=== PATIENT | female | born 1975 | race Asian ===

== ENCOUNTER 2018-07-13 13:04 | Observation (INO) | payer OTHER ==
--- OUTSIDE RECORDS SUMMARY | 2018-07-13 13:07 | XMS REPORT ---
:1975 Author Organization eClinicalWorks Care Team Providers Name Role Phone Joshua Bailey Provider Role Unavailable Allergies, Adverse Reactions, Alerts Substance Reaction Event Type N.K.D.A. Info Not Available Non Drug Allergy Problems Problem Type Condition Code Onset Dates Condition Status Assessment Well woman exam with routine Z01.419 Active gynecological exam Assessment Infertility counseling Z31.69 Active Problem Infertility counseling Z31.69 Active Problem Infertility associated with N97.0 Active anovulation Problem Well woman exam with routine Z01.419 Active gynecological exam Assessment Encounter for annual routine Z01.419 Active gynecological examination Problem Encounter for annual routine Z01.419 Active gynecological examination Problem Abnormal mammogram of both breasts R92.8 Active Medications Medication Code System Code Instructions Start End Date Status Dosage Date Vitamin C [facility] 55412290409 1000 MG Orally Active 1 tablet Once a day Vitamin D-[address] [facility] 70809657799 1000 UNIT Orally Active 1 capsule Once a day Results Name Result Date Reference Range Unit Abnormality Flag URINALYSIS AUTO W/O SCOPE (04011) ----NIT neg [id number] ----URO 0.2 [id number] ----PROTEIN neg [id number] ----pH 6.0 [id number] ----BLO 3+ [id number] ----GLUCOSE neg [id number] ----BAILEE neg [id number] ----BILIRUBIN neg [id number] ----KETONES neg [id number] ----SPECIFIC GRAVITY 1.010 [id number] Summary Purpose eClinicalWorks Submission
--- OUTSIDE RECORDS SUMMARY | 2018-07-13 13:28 | XMS REPORT ---
[...] End Date Status Dosage Date Vitamin C [facility] 35800378435 1000 MG Orally Active 1 tablet Once a day Vitamin D-[address] [facility] 90743668435 1000 UNIT Orally Active 1 capsule Once a day Results Name Result Date Reference Range Unit Abnormality Flag URINALYSIS AUTO W/O SCOPE (50317) ----NIT neg [id number] ----URO 0.2 [id number] ----PROTEIN neg [id number] ----pH 6.0 [id number] ----BLO 3+ [id number] ----GLUCOSE neg [id number] ----BAILEE neg [id number] ----BILIRUBIN neg [id number] ----KETONES neg [id number] ----SPECIFIC GRAVITY 1.010 [id number] Summary Purpose eClinicalWorks Submission
[2018-07-13] MEDS ORDERED: ALBUTEROL 2.5 MG/3 ML NEB SOL IH PRN (15:06)
[2018-07-13 15:56] LABS: BUN Blood Urea Nitrogen 6 mg/dL (7-18); Bicarbonate 24 mmol/L (21-32); Glucose Level 120 mg/dL (74-106); Potassium 3.6 mmol/L (3.5-5.1); Sodium Level 141 mmol/L (136-145)
[2018-07-13] MEDS ORDERED: ONDANSETRON 4 MG (ODT) TAB PO PRN (16:00)
[2018-07-13] MEDS ORDERED: ONDANSETRON 4 MG/2 ML VIAL IV PRN (16:00)
[2018-07-13] MEDS ORDERED: POLYETHYL GLY 3350 17 GM/DOSE PO PRN (16:00)
[2018-07-13] MEDS ORDERED: INFLUENZA VACCINE (for 3y+) 0.5 ML DOSE IMVAC ONE (16:00)
[2018-07-13] MEDS ORDERED: ACETAMINOPHEN 325 MG TABLET PO PRN (16:00)
[2018-07-13] MEDS ORDERED: LOPERAMIDE HCL 2 MG CAPSULE PO PRN (16:00)
[2018-07-13] MEDS ORDERED: NACHLORIDE 0.45% 1,000 ML IV SCH (16:00)
[2018-07-13] MEDS ORDERED: DIPHENHYDRAMINE 25 MG TAB/CAP PO PRN (16:00)
[2018-07-13] MEDS ORDERED: PNEUMOCOCCAL VACCINE 0.5 ML IMVAC ONE (16:00)
[2018-07-13 16:03] LABS: Absolute Lymphocytes (CBC) 1.8 K/uL (0.7-4.9); Absolute Monocytes 0.5 K/uL (0.1-1.3); Absolute Neutrophil 3.5 K/uL (1.8-8.0); Basophils % 0.9 % (0-1.3); Eosinophils % 2.9 % (0-4.4); Hematocrit 25.2 % (36.0-45.0); Lymphocytes % 29.6 % (15.3-44.8); MPV 8.4 fL (7.6-11.3); Monocytes % 8.3 % (3.3-12.3); RBC Red Blood Cell Count 3.53 M/uL (3.86-4.86)
[2018-07-13] MEDS ORDERED: NA CHLORIDE 0.9% 250 ML ONE (16:52)
[2018-07-13 17:52] LABS: Platelet Estimate INCR; Urine White Blood Cell Casts OK
[2018-07-13 17:53] LABS: Anisocytosis 3+; Blood Morphology Comment NOTED (NOT SEEN); Hypochromasia 1+; Polychromasia SLIGHT
[2018-07-13] MEDS: ALBUTEROL 2.5 MG/3 ML NEB SOL IH SCH (20:00)
[2018-07-13] MEDS: IPRATROPIUM BROM 0.5MG/2.5ML IH SCH (20:00)
[2018-07-14] MEDS: IPRATROPIUM BROM 0.5MG/2.5ML IH SCH ×2 (01:59→08:00)
[2018-07-14] MEDS: ALBUTEROL 2.5 MG/3 ML NEB SOL IH SCH ×2 (01:59→08:00)
[2018-07-14 05:05] LABS: Hematocrit 31.9 % (36.0-45.0)
--- NOTE | 2018-07-14 18:02 | P.DS ---
Admission Date: 07/13/18 Discharge Date: 07/14/18 Disposition: ROUTINE DISCHARGE Discharge Condition: FAIR Brief History of Present Illness: JOSELIN HAS SEVER MENORRHAGEA. HER HG IS DOWN TO 7.7 GM. SHE IS VERY SYMPTOMATIC FROM IT. SHE IS GIVEN TWO UNITS OF BLOOD AND WILL FU WITH DR. DOAN. Vital Signs/Physical Exam: Temp Pulse Resp BP Pulse Ox 98.2 F 90 16 152/90 H 99 07/14/18 08:00 07/14/18 08:00 07/14/18 08:00 07/14/18 08:00 07/14/18 08:00 Laboratory Data at Discharge: WBC 6.0 K/uL (4.3-10.9) 07/13/18 15:25 Hgb 10.2 g/dL (12.0-15.0) L 07/14/18 04:33 Hct 31.9 % (36.0-45.0) L D 07/14/18 04:33 Plt Count 426 K/uL (152-406) H 07/13/18 15:25 Sodium 141 mmol/L (136-145) 07/13/18 15:25 Potassium 3.6 mmol/L (3.5-5.1) 07/13/18 15:25 BUN 6 mg/dL (7-18) L 07/13/18 15:25 Creatinine 0.57 mg/dL (0.55-1.3) 07/13/18 15:25 Glucose 120 mg/dL (74-106) H 07/13/18 15:25 Home Medications: Ascorbic Acid [Vitamin C] 1,000 mg PO DAILY 07/13/18 Cholecalciferol (Vitamin D3) [Vitamin D3] 5,000 unit PO DAILY 07/13/18 Ferrous Sulfate [Feosol] 325 mg PO BID 07/13/18 Norgestimate-Ethinyl Estradiol [Sprintec 28 Day Tablet] 1 each PO DAILY Patient Discharge Instructions: CONTINUE IRON TABLET DAILY. COME TO OFFICE IN TWO WEEKS. Followup: Dain Sultana MD [Primary Care Provider] - 1-2 Weeks
== END 2018-07-14 09:10 | disposition home or self-care (01) ==
LOC: ERHOLD 13:04 → UNDOADMOB 13:04 → 2ND 13:23
PROVIDERS: ADMIT Internal Medicine; ATTEND Internal Medicine
PROC: 30233N1 Transfusion of Nonautologous Red Blood Cells into Peripheral Vein, Percutaneous Approach (ICD-10-PCS; principal; 2018-07-13)
DX: D64.9 Anemia, unspecified (principal); N92.0 Excessive and frequent menstruation with regular cycle
CPT/HCPCS: 36415; 36430; 80048; 85014; 85018; 85025; 86850; 86900; 86901; 90670; G0378; P9016

== ENCOUNTER 2019-09-05 21:34 | Emergency (ER) | payer OTHER ==
--- OUTSIDE RECORDS SUMMARY | 2019-09-05 21:36 | XMS REPORT ---
:1975 Author Organization [facility] Address [address] [place] [address] [place] [id number] Care Team Providers Name Role Phone Unavailable Unavailable Unavailable Problems This patient has no known problems. Allergies, Adverse Reactions, Alerts This patient has no known allergies or adverse reactions. Medications This patient has no known medications.
--- OUTSIDE RECORDS SUMMARY | 2019-09-05 21:36 | XMS REPORT ---
:1975 Author Organization eClinicalWorks Care Team Providers Name Role Phone Joshua Bailey Provider Role Unavailable Allergies, Adverse Reactions, Alerts Substance Reaction Event Type N.K.D.A. Info Not Available Non Drug Allergy Problems Problem Type Condition Code Onset Dates Condition Status Problem Anemia due to acute blood loss D62 Active Problem Menorrhagia with regular cycle N92.0 Active Problem Menorrhagia with irregular cycle N92.1 Active Problem Encounter for screening mammogram Z12.31 Active for breast cancer Assessment BMI 25.0-25.9,adult Z68.25 Active Problem Encounter for gynecological Z01.419 Active examination without abnormal finding Assessment Hypertension, unspecified type I10 Active Problem BMI 25.0-25.9,adult Z68.25 Active Problem Lower abdominal pain R10.30 Active Problem Irregular bleeding N92.6 Active Problem Hypertension, unspecified type I10 Active Problem Uterine leiomyoma, unspecified D25.9 Active location Problem Abnormal mammogram of both breasts R92.8 Active Assessment Encounter for screening mammogram Z12.31 Active for breast cancer Assessment Encounter for gynecological Z01.419 Active examination without abnormal finding Problem Well woman exam with routine Z01.419 Active gynecological exam Problem Encounter for annual routine Z01.419 Active gynecological examination Problem Infertility associated with N97.0 Active anovulation Problem Abnormal uterine bleeding unrelated N93.9 Active to menstrual cycle Problem Infertility counseling Z31.69 Active Problem Encounter for Depo-Provera Z30.42 Active contraception Medications Medication Code System Code Instructions Start End Date Status Dosage Date Vitamin C [facility] 24122443336 1000 MG Orally Active 1 tablet Once a day Vitamin D-3 [facility] 93233048796 5000 UNIT Orally Active 1 tablet Once a day Sprintec 28 [facility] 49126925353 0.25-35 MG-MCG Jul 08, Active 1 tablet Orally Once a day 2018 Results No Known Results Summary Purpose eClinicalWorks Submission
[2019-09-05] MEDS ORDERED: ACETAMINOPHEN 500 MG TAB ONE (22:14)
[2019-09-05] MEDS ORDERED: NA CHLORIDE 0.9% 1,000 ML ONE (22:14)
[2019-09-05 22:54] LABS: Absolute Lymphocytes (CBC) 1.3 K/uL (0.7-4.9); Basophils % 0.6 % (0-1.3); Hematocrit 39.9 % (36.0-45.0); Lymphocytes % 26.8 % (15.3-44.8); MPV 9.3 fL (7.6-11.3)
[2019-09-05 23:02] LABS: BUN Blood Urea Nitrogen 6 mg/dL (7-18); Bicarbonate 26 mmol/L (21-32); Glucose Level 168 mg/dL (74-106); Potassium 3.7 mmol/L (3.5-5.1); Sodium Level 138 mmol/L (136-145)
--- NOTE | 2019-09-06 00:03 | ER ---
Nurse's Notes [facility] Name: Lissy Angel Age: 43 yrs Sex: Female : 1975 Arrival Date: 09/05/2019 Time: 21:36 Bed 6 Private MD: Diagnosis: Acute upper respiratory infection, unspecified Presentation: 09/04 21:42 Chief complaint: Patient states: that she is having chills, sore throat, cough, fc fatigue, body aches and headache that started today. Coronavirus screen: Patient denies fever greater than 100.4F, cough, shortness of breath, or difficulty breathing. Coronavirus screen: Coronavirus screen: Patient reports a subjective fever or greater than 100.4F, or cough, or shortness of breath, or difficulty breathing. Surgical mask placed on patient. Patient moved to private room, placed in contact and droplet isolation with eye protection until further assessment. Patient reports contact with known and/or suspected case of COVID-19. Ebola Screen: Patient negative for fever greater than or equal to 101.5 degrees Fahrenheit, and additional compatible Ebola Virus Disease symptoms Patient denies exposure to infectious person. Patient denies travel to an Ebola-affected area in the 21 days before illness onset. Initial Sepsis Screen: Does the patient meet any 2 criteria? RR > 20 per min. HR > 90 bpm. Yes Does the patient have a suspected source of infection? No. Patient's initial sepsis screen is negative. Risk Assessment: Do you want to hurt yourself or someone else? Patient reports no desire to harm self or others. Onset of symptoms was September 05, 2019. Care prior to arrival: Medication(s) given: Tylenol, this am. Transition of care: patient was not received from another setting of care. 21:42 Method Of Arrival: Ambulatory fc 21:42 Acuity: [place] 3 fc Triage Assessment: 22:35 Headache History: Denies prior headaches. General: Appears uncomfortable, Behavior is ea appropriate for age. Pain: Complains of pain in sore throat and headache. 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 - Social history:: Smoking status: Patient denies any tobacco usage or history of. Patient/guardian denies using alcohol, street drugs. Screenin:34 Abuse screen: Denies threats or abuse. Nutritional screening: No deficits noted. ea Tuberculosis screening: No symptoms or risk factors identified. Fall Risk None identified. Assessment: 22:34 General: Appears uncomfortable, Behavior is calm, cooperative, appropriate for age. ea Pain: Denies pain. Neuro: Level of Consciousness is awake, alert, obeys commands, Oriented to person, place, time, situation. Cardiovascular: Patient's skin is warm and dry. Respiratory: Airway is patent Respiratory effort is even, unlabored, Respiratory pattern is regular, symmetrical. Derm: Skin is pink, warm \T\ dry. 23:04 Reassessment: Patient and/or family updated on plan of care and expected duration. Pain ea level reassessed. Patient is alert, oriented x 3, equal unlabored respirations, skin warm/dry/pink. 23:44 Reassessment: Patient and/or family updated on plan of care and expected duration. Pain ea level reassessed. Patient is alert, oriented x 3, equal unlabored respirations, skin warm/dry/pink. Pt taken to radiology. 09/05 00:02 Reassessment: Patient and/or family updated on plan of care and expected duration. Pain ea level reassessed. Patient is alert, oriented x 3, equal unlabored respirations, skin warm/dry/pink. Pt returned from radiology. 00:13 Reassessment: Patient and/or family updated on plan of care and expected duration. Pain ea level reassessed. Patient is alert, oriented x 3, equal unlabored respirations, skin warm/dry/pink. Discharge instruction given to patient, verbalized the understanding of instruction. Pt left ED ambulatory, with mask in place, tolerating well. 09:39 Reassessment: Received PUI# [id number], [facility] called to roland Frazier in lab . Vital Signs: 09/04 21:42 BP 186 / 106; Pulse 124; Resp 22; Temp 99.5(O); Pulse Ox 100% on R/A; Weight 58.97 kg fc (R); Height 5 ft. 0 in. (152.40 cm) (R); Pain 4/10; 09/05 00:01 BP 151 / 94; Pulse 98; Resp 19; Pulse Ox 100% on R/A; ea 00:12 Temp 98.5; ea 09/04 21:42 Body Mass Index 25.39 (58.97 kg, 152.40 cm) ED Course: 09/04 21:36 Patient arrived in ED. cl3 21:47 Triage completed. fc 21:47 [facility] Gustaf[facility]-C [facility]. kb 21:47 Jaden Disla MD is Attending Physician. kb 21:48 Arm band placed on Patient placed in an exam room, on a stretcher. fc 22:08 Rachel Castro, KAYLEE is Primary Nurse. ea 22:34 Patient has correct armband on for positive identification. Bed in low position. Call ea light in reach. Side rails up X 1. 22:34 Inserted saline lock: 20 gauge in left antecubital area, using aseptic technique. Blood ea collected. 22:35 EKG done, by ED staff. mt 09/05 00:13 No provider procedures requiring assistance completed. IV discontinued, intact, ea bleeding controlled, No redness/swelling at site. Pressure dressing applied. 00:15 Chest Pa And Lat (2 Views) XRAY In Process Unspecified. EDMS Administered Medications: 09/04 22:33 Drug: Tylenol 1000 mg Route: PO; ea 09/05 00:15 Follow up: Response: No adverse reaction ea 09/04 22:33 Drug: NS 0.9% 1000 ml Route: IV; Rate: 1000 ml; Site: left antecubital; ea 09/05 00:10 Follow up: Response: No adverse reaction; IV Status: Completed infusion; IV Intake: ea 1000ml Intake: 00:10 IV: 1000ml; Total: 1000ml. ea Outcome: 00:02 Discharge ordered by . kb 00:13 Discharged to home ambulatory. ea 00:13 Condition: stable 00:13 Discharge instructions given to patient, Instructed on discharge instructions, follow up and referral plans. Demonstrated understanding of instructions, follow-up care. 00:21 Patient left the ED. ea Signatures: Dispatcher [employer] EDLesli Combs, LACTATION NURSE-C LACTATION NURSE-CkAngelika Welch RN Milvia Vasquez RN RN iw Thompson, Moriah mt Antunez, Elena, RN RN ea Lewis, Charde cl3 Corrections: (The following items were deleted from the chart) 00:14 00:13 Reassessment: Patient and/or family updated on plan of care and expected ea duration. Pain level reassessed. Patient is alert, oriented x 3, equal unlabored respirations, skin warm/dry/pink. Discharge instruction given to patient, verbalized the understanding of instruction. Pt left ED ambulatory, tolerating well. ea
--- NOTE | 2019-09-06 00:04 | EDPHYS ---
Physician Documentation [facility] Name: Lissy Angel Age: 43 yrs Sex: Female : 1975 Arrival Date: 09/05/2019 Time: 21:36 Bed 6 Private MD: ED Physician Jaden Disla HPI: 09/04 22:12 This 43 yrs old Female presents to ER via Ambulatory with complaints of Headache, kb Sore Throat. 22:12 The patient or guardian reports cough, that is intermittent, described as mild, with no kb sputum, flu symptoms, low-grade fever, myalgias. Onset: The symptoms/episode began/occurred this morning. Severity of symptoms: At their worst the symptoms were moderate, in the emergency department the symptoms are unchanged. Modifying factors: The symptoms are alleviated by nothing, the symptoms are aggravated by nothing. Associated signs and symptoms: Pertinent positives: fever, sore throat, Pertinent negatives: chest pain, diarrhea, ear ache, nausea, rhinorrhea, vomiting. The patient has not experienced similar symptoms in the past. The patient has not recently seen a physician. Pt reports fever, cough, sore throat, body aches, headache since this morning. States she picked up someone from the airport that traveled from [facility] on 08/26/19. That person is not sick, but the other person that lives with her and was near the traveler has had fever and headache since 08/27/19. Also reports she took care of a patient that was a PUI and has a test pending for COVID. 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 - Social history:: Smoking status: Patient denies any tobacco usage or history of. Patient/guardian denies using alcohol, street drugs. ROS: 22:12 Neck: Negative for injury, pain, and swelling, Cardiovascular: Negative for chest pain, kb palpitations, and edema, Abdomen/GI: Negative for abdominal pain, nausea, vomiting, diarrhea, and constipation, Back: Negative for injury and pain, MS/Extremity: Negative for injury and deformity, Skin: Negative for injury, rash, and discoloration. 22:12 Constitutional: Positive for body aches, fatigue, fever, malaise. 22:12 ENT: Positive for sore throat. 22:12 Respiratory: Positive for cough, Negative for dyspnea on exertion, hemoptysis, orthopnea, pleurisy, shortness of breath, sputum production, wheezing. 22:12 Neuro: Positive for headache, Negative for altered mental status, dizziness, gait disturbance, hearing loss, loss of consciousness, numbness, seizure activity, speech changes, syncope, near syncope, tingling, tinnitus, tremor, visual changes, weakness. Exam: 22:12 Constitutional: This is a well developed, well nourished patient who is awake, alert, kb and in no acute distress. Head/Face: Normocephalic, atraumatic. ENT: Nares patent. No nasal discharge, no septal abnormalities noted. Tympanic membranes are normal and external auditory canals are clear. Oropharynx with no redness, swelling, or masses, exudates, or evidence of obstruction, uvula midline. Mucous membranes moist. Neck: Trachea midline, no thyromegaly or masses palpated, and no cervical lymphadenopathy. Supple, full range of motion without nuchal rigidity, or vertebral point tenderness. No Meningismus. Chest/axilla: Normal chest wall appearance and motion. Nontender with no deformity. No lesions are appreciated. Respiratory: Lungs have equal breath sounds bilaterally, clear to auscultation and percussion. No rales, rhonchi or wheezes noted. No increased work of breathing, no retractions or nasal flaring. Abdomen/GI: Soft, non-tender, with normal bowel sounds. No distension or tympany. No guarding or rebound. No evidence of tenderness throughout. Back: No spinal tenderness. No costovertebral tenderness. Full range of motion. Skin: Warm, dry with normal turgor. Normal color with no rashes, no lesions, and no evidence of cellulitis. MS/ Extremity: Pulses equal, no cyanosis. Neurovascular intact. Full, normal range of motion. Neuro: Awake and alert, GCS 15, oriented to person, place, time, and situation. Cranial nerves II-XII grossly intact. Motor strength 5/5 in all extremities. Sensory grossly intact. Cerebellar exam normal. Normal gait. 22:12 Cardiovascular: Rate: tachycardic, Rhythm: regular, Pulses: no pulse deficits are appreciated, Heart sounds: normal, normal S1and S2. Vital Signs: 21:42 BP 186 / 106; Pulse 124; Resp 22; Temp 99.5(O); Pulse Ox 100% on R/A; Weight 58.97 kg fc (R); Height 5 ft. 0 in. (152.40 cm) (R); Pain 4/10; 09/05 00:01 BP 151 / 94; Pulse 98; Resp 19; Pulse Ox 100% on R/A; ea 00:12 Temp 98.5; ea 09/04 21:42 Body Mass Index 25.39 (58.97 kg, 152.40 cm) fc MDM: 09/04 21:47 Patient medically screened. kb 22:12 Data reviewed: vital signs, nurses notes. Data interpreted: Pulse oximetry: on room air kb is 100 %. Interpretation: normal. 09/05 00:00 Counseling: I had a detailed discussion with the patient and/or guardian regarding: the kb historical points, exam findings, and any diagnostic results supporting the discharge/admit diagnosis, lab results, radiology results, the need for outpatient follow up, a family practitioner, to return to the emergency department if symptoms worsen or persist or if there are any questions or concerns that arise at home. 09/04 22:37 Order name: Influenza Screen (A ; Complete Time: 22:54 EDDC 09/04 21:49 Order name: Chest Pa And Lat (2 Views) XRAY kb 09/04 22:37 Order name: Group A Streptococcus Rapid Sc; Complete Time: 22:54 EDDC 09/04 22:37 Order name: Basic Metabolic Panel; Complete Time: 23:11 EDDC 09/04 22:37 Order name: CBC with Automated Diff; Complete Time: 23:02 EDDC 09/04 22:48 Order name: Miscellaneous Test Lab EDDC 09/04 23:01 Order name: Throat Culture EDDC 09/04 21:49 Order name: IV Start; Complete Time: 22:34 kb 09/04 23:59 Order name: Vital Signs; Complete Time: 00:08 kb Administered Medications: 09/04 22:33 Drug: Tylenol 1000 mg Route: PO; 09/05 00:15 Follow up: Response: No adverse reaction 09/04 22:33 Drug: NS 0.9% 1000 ml Route: IV; Rate: 1000 ml; Site: left antecubital; 09/05 00:10 Follow up: Response: No adverse reaction; IV Status: Completed infusion; IV Intake: ea 1000ml Disposition: :33 Co-signature as Attending Physician, Jaden Disla MD I agree with the assessment and [facility] plan of care. Disposition: 09/06/19 00:02 Discharged to Home. Impression: Acute upper respiratory infection, unspecified. - Condition is Stable. - Discharge Instructions: Upper Respiratory Infection, Adult, Tqna-lq-Ytiu, Viral Respiratory Infection, Qaqa-Hv-Zanj. - Work release form, Medication Reconciliation Form, Thank You Letter, Antibiotic Education, Prescription Opioid Use form. - Follow up: Emergency Department; When: As needed; Reason: Worsening of condition. Follow up: Private Physician; When: 2 - 3 days; Reason: Recheck today's complaints, Continuance of care, Re-evaluation by your physician. Signatures: Dispatcher [employer] EDLesli Combs, BENDER HELPER-C BENDER HELPER-Jaden Rich MD MD cha Chretien, Felicia, RN RN Rachel Fajardo RN RN ea Corrections: (The following items were deleted from the chart) 09/04 23:41 23:07 Influenza Screen (A \T\ B)+BA.LAB.BRZ ordered. EDDC EDMS 23:41 23:07 Group A Streptococcus Rapid Sc+BA.LAB.BRZ ordered. EDDC EDMS 23:41 23:07 CBC+H.LAB.BRZ ordered. EDDC EDMS 23:41 23:07 BASIC METABOLIC PANEL+C.LAB.BRZ ordered. EDDC EDMS 23:41 23:07 Miscellaneous Lab Test+R.[facility] 00:21 00:02 09/06/2019 00:02 Discharged to Home. Impression: Acute upper respiratory ea infection, unspecified. Condition is Stable. Discharge Instructions: Upper Respiratory Infection, Adult, Fvos-yf-Jrnb, Viral Respiratory Infection, Ddnz-Ft-Cxpm. Forms are Medication Reconciliation Form, Thank You Letter, Antibiotic Education, Prescription Opioid Use. Follow up: Emergency Department; When: As needed; Reason: Worsening of condition. Follow up: Private Physician; When: 2 - 3 days; Reason: Recheck today's complaints, Continuance of care, Re-evaluation by your physician. kb
[2019-09-06 00:34] VITALS: O2SAT 100
[2019-09-06 00:35] VITALS: BP 151/94
[2019-09-06 00:36] VITALS: TEMP 98.5
--- NOTE | 2019-09-06 06:08 | RAD REPORT ---
EXAM DESCRIPTION: Petrona Banks (2 Views)09/06/2019 12:14 am CLINICAL HISTORY: Cough COMPARISON: 2016 FINDINGS: The lungs appear clear of acute infiltrate. The heart is normal size IMPRESSION: No acute abnormalities displayed
== END 2019-09-06 00:21 | disposition home or self-care (01) ==
LOC: ER 21:34
DX: J06.9 Acute upper respiratory infection, unspecified (principal); J45.909 Unspecified asthma, uncomplicated; Z03.818 Encounter for observation for suspected exposure to other biological agents ruled out
CPT/HCPCS: 96361; 87070; 85025; 80048; 36415; 87081; 87804 ×2; 71046; 96360; 99284; U0001; J7030

== ENCOUNTER 2021-02-13 08:18 | Emergency (ER) | payer OTHER ==
--- OUTSIDE RECORDS SUMMARY | 2021-02-13 08:21 | XMS REPORT | Clinical Summary ---
:1975 Author Organization [facility] MD [facility] Address [address] [place] [address] Care Team Providers Name Role Phone Silvio Alfonso MD Primary Care Provider Pratima Gomes MD Unavailable Allergies Not on File Medications Not on file Active Problems Not on file Social History Tobacco Use Types Packs/Day Years Used Date Never Assessed Sex Assigned at Date Recorded Not on file Job Start Date Occupation Industry Not on file Not on file Not on file Last Filed Vital Signs Not on file Plan of Treatment Date Type Specialty Care Team Description 02/24/2021 [employer] Patient Access Services 02/24/2021 Office Visit Gynecology Silvio Alfonso M D [address] [place], [place] [address] [phone] Results Not on fileafter 02/14/2020 Insurance Payer Benefit Plan / Subscriber ID Effective Dates Phone Addre ss Type Group [employer] O [id number] 2020-Present HMO
--- OUTSIDE RECORDS SUMMARY | 2021-02-13 08:21 | XMS REPORT | Continuity of Care Document ---
:1975 Author Organization [facility] t Address [address] [place] [address] Care Team Providers Name Role Phone [phone] Primary Care Physician Unavailable SYSTEM, NOT IN Attending Clinician Unavailable Problems Condition Condition Condition Status Onset Resolution Last Treating Co mments Source Name Details Category Date Date Treatment Clinician Date Encounter Encounter Problem Active [facility] for annual for annual Mirian kes - routine routine Memoria gynecologi gynecologi l autumn autumn Outpati examinatio examinatio en t n n Clinics Infertilit Infertilit Problem Active [facility] - counseling counseling [facility] moria l Outpati ent Clinics Infertilit Infertilit Problem Active [facility] - associated associated Me moria with with l anovulatio anovulatio Ou tpati n n ent Clinics Abnormal Abnormal Problem [facility] - of both of both Memoria breasts breasts l Outpati ent Clinics Abnormal Abnormal Problem [facility] uterine uterine [facility] - bleeding bleeding Memori a unrelated unrelated l to to Outpati menstrual menstrual ent cycle cycle Clinics Encounter Encounter Problem Active [facility] for for [facility] - Depo-Prove Depo-Prove Me moria ra ra l contracept contracept Ou tpati ion ion ent Clinics Anemia due Anemia due Problem Active [facility] to acute to acute [facility] - blood loss blood loss Me moria l Outpati ent Clinics Menorrhagi Menorrhagi Problem Active [facility] a with a with [facility] - regular regular Memoria cycle cycle l Outpati ent Clinics Menorrhagi Menorrhagi Problem Active [facility] a with a with [facility] - irregular irregular George taurus cycle cycle l [facility] Irregular Irregular Problem Active [facility] bleeding bleeding [facility] - Memoria l [facility] Clinics Uterine Uterine Problem Active [facility] leiomyoma, leiomyoma, Mirian kes - unspecifie unspecifie Me moria d location d location l [facility] Lower Lower Problem Active [facility] abdominal abdominal Luke s - pain pain [facility] Encounter Encounter Diagnosis Active [facility] for for [facility] - screening screening George taurus mammogram mammogram l for breast for breast Ou tpati cancer cancer ent Clinics BMI BMI Problem Active [facility] 25.0-25.9, 25.0-25.9, Mirian kes - adult adult [facility] Hypertensi Hypertensi Problem Active [facility] on, on, [facility] - unspecifie unspecifie Me moria d type d type l [facility] Allergies, Adverse Reactions, Alerts This patient has no known allergies or adverse reactions. Social History Social Habit Start Date Stop Date Quantity Comments Source Sex Assigned At [birth year] MD Disla 00:00:00 00:00:00 Medications Ordered Filled Start Stop Current Ordering Indication Dosage Frequency Signature Comments Components Source Medication Medication Date Date Medication? Clinician (SIG) Name Name Jeronimo 28 Jeronimo 28 Yes Joshua [address] [facility] 1-25 [facility]ekhi [facility] - 00:00: Memoria 00 [facility] Vitamin D-3 Vitamin D-3 Yes Joshua [address] [facility] - Memoria l [facility] Vitamin C Vitamin C Yes Joshua [address] [facility] - Memoria [facility] Procedures This patient has no known procedures. Encounters Start End Encounter Admission Attending Care Care Encounter Source Date/Time Date/Time Type Type Clinicians Facility Department ID 2021-02-11 Outpatient SYSTEM, TAE STRONG [id number] 10:47:20 PROVIDER Jimreece lorenzo 2019-02-16 2019-02-16 Outpatient Roula Arvizu [id number] [facility] 09:30:00 09:30:00 [facility] 2018-10-28 2018-10-28 Outpatient Roula Arvizu [id number] [facility] 10:45:00 10:45:00 t [facility] 2018-08-05 2018-08-05 [facility] [id number] 10:00:00 10:00:00 t [facility] 2018-07-08 2018-07-08 [facility] [id number] [facility] 12:09:00 12:09:00 t [facility] 2018-07-08 2018-07-08 [facility] [id number] [facility] 09:45:00 09:45:00 t [facility] 2018-02-15 2018-02-15 [facility] [id number] 11:15:00 11:15:00 t [facility] Results This patient has no known results.
--- NOTE | 2021-02-13 08:46 | EDPHYS ---
Physician Documentation [facility] Name: Lissy Angel Age: 45 yrs Sex: Female : 1975 Arrival Date: 02/13/2021 Time: 08:20 Bed 12 Private MD: JORDI Physician Jaden Disla HPI: 02/13 09:18 This 45 yrs old Female presents to ER via Ambulatory with complaints of Back kb Injury. 09:18 The patient presents with pain that is acute. The symptoms are located in the left low kb back. Onset: The symptoms/episode began/occurred this morning. The pain does not radiate. Associated signs and symptoms: The patient has no apparent associated signs or symptoms. The problem was sustained when lifting patient. Modifying factors: The patient symptoms are alleviated by nothing, the patient symptoms are aggravated by any movement. Severity of symptoms: At their worst the symptoms were moderate, in the emergency department the symptoms are unchanged. The patient has not experienced similar symptoms in the past. The patient has not recently seen a physician. 09:19 Pt reports she was helping move a pt from a stretcher to a bed and got pulled with the kb pt. Reports left lower back/upper buttock pain. 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 - Social history:: Smoking status: Patient denies any tobacco usage or history of. ROS: 09:17 Constitutional: Negative for fever, chills, and weight loss. kb 09:17 Back: Positive for pain at rest, pain with movement, of the left low back. 09:17 All other systems are negative. Exam: 09:17 Constitutional: This is a well developed, well nourished patient who is awake, alert, kb and in no acute distress. Head/Face: Normocephalic, atraumatic. ENT: Moist Mucous membranes Respiratory: Respirations even and unlabored. No increased work of breathing, no retractions or nasal flaring. Skin: Warm, dry with normal turgor. Normal color. MS/ Extremity: Pulses equal, no cyanosis. Neurovascular intact. Full, normal range of motion. Neuro: Awake and alert, GCS 15, oriented to person, place, time, and situation. Moves all extremities. Normal gait. Psych: Awake, alert, with orientation to person, place and time. Behavior, mood, and affect are within normal limits. 09:17 Back: pain, that is mild, of the left low back, ROM is normal, normal spinal alignment noted, vertebral tenderness, is not appreciated. 09:18 Neuro: Exam negative for acute changes. kb Vital Signs: 08:42 BP 166 / 93; Pulse 95; Resp 17; Temp 98.6; Pulse Ox 100% ; Weight 58.06 kg; Height 9 jl7 ft. 5 in. (287.02 cm); 08:42 Body Mass Index 7.05 (58.06 kg, 287.02 cm) jl7 MDM: 08:45 Patient medically screened. kb 08:45 Data reviewed: vital signs, nurses notes. Data interpreted: Pulse oximetry: on room air kb is 100 %. Interpretation: normal. Counseling: I had a detailed discussion with the patient and/or guardian regarding: the historical points, exam findings, and any diagnostic results supporting the discharge/admit diagnosis, the need for outpatient follow up, a family practitioner, to return to the emergency department if symptoms worsen or persist or if there are any questions or concerns that arise at home. Administered Medications: 08:58 Drug: Ketorolac 30 mg Route: IM; Site: right gluteus; ss 09:09 Follow up: Response: No adverse reaction; Pain is decreased ss Disposition: 02/14 08:16 Co-signature as Attending Physician, Jaden Disla MD I agree with the assessment and scout plan of care. Disposition Summary: 02/13/21 08:46 Discharge Ordered Location: Home Condition: Stable kb Diagnosis - Low back pain kb Followup: kb - With: Emergency Department - When: As needed - Reason: Worsening of condition Followup: kb - With: Private Physician - When: 2 - 3 days - Reason: Recheck today's complaints, Continuance of care, Re-evaluation by your physician Discharge Instructions: - Discharge Summary Sheet kb - Acute Back Pain, Adult kb - Musculoskeletal Pain kb - Back Injury Prevention, [id number] kb Forms: - Medication Reconciliation Form kb - Thank You Letter kb - Antibiotic Education kb - Prescription Opioid Use kb Prescriptions: - Diclofenac Sodium 75 mg Oral tablet,delayed release (DR/EC) - take 1 tablet by ORAL route 2 times per day As needed; 30 tablet; Refills: 0, kb Product Selection Permitted - orphenadrine citrate 100 mg Oral Tablet Sustained Release - take 1 tablet by ORAL route 2 times per day As needed; 20 tablet; Refills: 0, kb Product Selection Permitted Signatures: Lesli Gustafson, TRUST MAIL CLERK-C TRUST MAIL CLERK-Ckb Jaden Disla MD MD cha Smirch, Shelby RN RN ss Lenin Hastings RN RN jl7
--- NOTE | 2021-02-13 08:46 | ER ---
Nurse's Notes [facility] Name: Lissy Angel Age: 45 yrs Sex: Female : 1975 Arrival Date: 02/13/2021 Time: 08:20 Bed 12 Private MD: Diagnosis: Low back pain Presentation: 02/13 08:42 Chief complaint: Patient states: While transferring pt from stretcher to bed reports jl7 left low back pain. Coronavirus screen: Vaccine status: Patient reports receiving the 2nd dose of the covid vaccine. Date June 2020 Moderna. Ebola Screen: No symptoms or risks identified at this time. Initial Sepsis Screen: Does the patient meet any 2 criteria? No. Patient's initial sepsis screen is negative. Does the patient have a suspected source of infection? No. Patient's initial sepsis screen is negative. Risk Assessment: Do you want to hurt yourself or someone else? Patient reports no desire to harm self or others. Onset of symptoms was February 13, 2021. 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 - Social history:: Smoking status: Patient denies any tobacco usage or history of. Screenin:02 Abuse screen: Denies threats or abuse. Denies injuries from another. Nutritional ss screening: No deficits noted. Tuberculosis screening: Never had TB. Fall Risk None identified. Assessment: 09:10 Reassessment: Patient appears in no apparent distress at this time. Patient and/or ss family updated on plan of care and expected duration. Pain level reassessed. Patient is alert, oriented x 3, equal unlabored respirations, skin warm/dry/pink. Vital Signs: 08:42 BP 166 / 93; Pulse 95; Resp 17; Temp 98.6; Pulse Ox 100% ; Weight 58.06 kg; Height 9 jl7 ft. 5 in. (287.02 cm); 08:42 Body Mass Index 7.05 (58.06 kg, 287.02 cm) 7 ED Course: 08:20 Patient arrived in ED. rg4 08:42 Arm band placed on right wrist. jl7 08:44 Triage completed. jl7 08:44 Lesli Gustafson FNP-C [facility] kb 08:44 Jaden Disla MD is Attending Physician. kb 08:54 Mary Jade, KAYLEE is Primary Nurse. ss 09:02 Patient has correct armband on for positive identification. Bed in low position. Call ss light in reach. 09:02 No provider procedures requiring assistance completed. Patient did not have IV access ss during this emergency room visit. Administered Medications: 08:58 Drug: Ketorolac 30 mg Route: IM; Site: right gluteus; ss 09:09 Follow up: Response: No adverse reaction; Pain is decreased ss Outcome: 08:46 Discharge ordered by . kb 09:02 Condition: good ss 09:02 Discharge instructions given to patient, Instructed on discharge instructions, follow up and referral plans. medication usage, Demonstrated understanding of instructions, follow-up care, medications, Prescriptions given X 2. 09:10 Patient left the ED. ss Signatures: Lesli Gustafson FNP-C FNP-Mary De La Rosa, RN RN Yoselin Young rg4 Lenin Hastings RN RN jl7
[2021-02-13] MEDS ORDERED: KETOROLAC 30 MG/ML INJ ONE (09:18)
[2021-02-13 09:23] VITALS: BP 166/93; TEMP 98.6; O2SAT 100
== END 2021-02-13 09:10 | disposition home or self-care (01) ==
LOC: ER 08:18
DX: M54.5 Low back pain (principal)
CPT/HCPCS: 96372; 99283

== ENCOUNTER 2022-11-20 08:27 | Emergency (ER) | payer OTHER, BC ==
--- OUTSIDE RECORDS SUMMARY | 2022-11-20 08:45 | XMS REPORT | Continuity of Care Document ---
:1975 Author Organization [place] [facility] t Address [address] [place] [address] [place] [address] Care Team Providers Name Role Phone [phone] Primary Care Physician Unavailable Dain Sultana Attending Clinician Unavailable SYSTEM, PROVIDER NOT IN Attending Clinician Unavailable Bhargav Eric MD Attending Clinician Rachell Frederick Attending Clinician BHARGAV ERIC Attending Clinician Unavailable RACHELL HURT Attending Clinician Unavailable JAVIER CUNNINGHAM Attending Clinician Unavailable HUGH DUNHAM Attending Clinician Unavailable GIOVANNY NUÑEZ Attending Clinician Unavailable JAVIER CUNNINGHAM Admitting Clinician Unavailable BHARGAV ERIC Admitting Clinician Unavailable Payers Payer Name Policy Type Policy Number Effective Date Expiration Date Jojo quinones AETMARLENY [facility] [id number] 2020 00:00:00 Problems Condition Condition Condition Status Onset Resolution Last Treating Co mments Source Name Details Category Date Date Treatment Clinician Date Acute Acute Disease Active 2020-06 Univers posthemorr posthemorr 0-22 it y of hagic hagic 00:00: [place] anemia anemia 00 MD Mary lorenzo [facility] Hematoma Hematoma Disease Active 2020-06 Unive rs 0-22 ity of 00:00: [place] 00 MD Mary lorenzo [facility] Liver Liver Disease Active 2020-06 Univers function function 0-22 ity of tests tests 00:00: [place] abnormal abnormal 00 MD Mary lorenzo [facility] Cancer Cancer Disease Active 2020-06 Univers associated associated 0-22 it y of pain pain 00:00: [place] 00 MD Mary lorenzo [facility] Essential Essential Disease Active Uni vers hypertensi hypertensi 02-24 it y of on on 00:00: [place] MD Mary lorenzo Cancer [place] Irregular Irregular Disease Active Uni vers menstruati menstruati 02-24 it y of on on 00:00: [place] MD Mary lorenzo [facility] [place] Excessive Excessive Disease Active Uni vers and and 02-24 ity of frequent frequent 00:00: [place] menstruati menstruati 00 MD on with on with Mary irregular irregular n cycle cycle [facility] Leiomyoma Leiomyoma Disease Active Uni vers of uterus of uterus 02-24 ity of 00:00: [place] MD Mary lorenzo [facility] Asthma Asthma Disease Active Univers 02-24 ity of 00:00: [place] 00 MD Mary lorenzo [facility] Anemia due Anemia due Disease Active U nivers to chronic to chronic 02-24 it y of blood loss blood [place] Mary lorenzo [facility] Malignant Malignant Disease Active Uni vers neoplasm neoplasm 02-24 ity of of of 00:00: [place] endometriu endometriu 00 MD toni Hernandez [facility] Encounter Encounter Problem Active Com mon for annual for annual Sp марина routine routine - [facility] gynecologi gynecologi [facility] examinatio examinatio Me dical [facility] Infertilit Infertilit Problem Active C ommon y y Spirit counseling counseling - [facility] Infertilit Infertilit Problem Active C ommon y y Spirit associated associated - [facility] with with St anovulatio anovulatio [facility] Abnormal Abnormal Problem Active Commo n mammogram mammogram Spir it of both of both - CHI breasts breasts [facility] Abnormal Abnormal Problem Active Commo n uterine uterine Spirit bleeding bleeding - [facility] unrelated unrelated [facility] menstrual menstrual [facility] cycle cycle Center Encounter Encounter Problem Active Com mon for for Spirit Depo-Prove Depo-Prove - [facility]I ra ra St contracept contracept [facility] Anemia due Anemia due Problem Active C ommon to acute to acute Spirit blood loss blood loss - [facility] Menorrhagi Menorrhagi Problem Active C ommon a with a with Spirit regular regular - CHI cycle cycle [facility] Menorrhagi Menorrhagi Problem Active C ommon a with a with Spirit irregular irregular - CH I cycle cycle [facility] Irregular Irregular Problem Active Com mon bleeding bleeding Spirit - CHI [facility] Uterine Uterine Problem Active Common leiomyoma, leiomyoma, Sp марина unspecifie unspecifie - CHI d location d location [facility] Lower Lower Problem Active Common abdominal abdominal Spir it pain pain - [facility] Encounter Encounter Diagnosis Active C ommon for for Spirit screening screening - CH I mammogram mammogram for breast for breast [facility] BMI BMI Problem Active Common 25.0-25.9, 25.0-25.9, Sp марина adult adult - [facility] Hypertensi Hypertensi Problem Active C ommon on, on, Spirit unspecifie unspecifie - CHI d type d type [facility] Allergies, Adverse Reactions, Alerts This patient has no known allergies or adverse reactions. Family History Family Member Diagnosis Comments Start Date Stop Date Source Natural father Hypertension [facility] Natural father Stroke [facility] Natural father Diabetes [facility] Natural mother Asthma [facility] Natural mother Heart disease [facility] r [place] Natural mother Hypertension [facility] Cousin Breast cancer [facility] Social History Social Habit Start Date Stop Date Quantity Comments Source Alcohol intake 2022-03-23 2022-03-23 Lifetime University of 00:00:00 00:00:00 non-drinker Myesha yeboah (finding[facility] Tobacco use and 2021-02-24 2021-02-24 Smokeless tobacco Un iversity of exposure 00:00:00 00:00:00 non-user Myesha teixeira [facility] Sex Ass[birth year] At [birth year] Universit y of 00:00:00 00:00:00 [place] MD Shalom teixeira [facility] Smoking Status Start Date Stop Date Source Never smoked tobacco [facility] Medications Ordered Filled Start Stop Current Ordering Indication Dosage Frequency Signature Comments Components Source Medication Medication Date Date Medication? Clinician (SIG) Name Name ascorbic Yes daily. Univers acid, 4- ity of vitamin C, 02:07: [place] (vitamin C) 37 MD 1000 mg Anderso tablet n [facility] cholecalcif Yes daily. [facility] ers omid, 09-12 ity of vitamin D3, 02:07: [place] (Vitamin 37 D3) 5,000 Anderso units tab n tablet [facility] folic acid Yes 400ug Take 400 Un ac (FOLVITE) 4-01 mcg by ity of 400 mcg 02:07: mouth [place] tablet 37 daily. MD Mary lorenzo [facility] garlic Yes 2000mg Take 2,000 Uni vers 1,000 mg 4-01 mg by ity of cap 02:07: mouth [place] 37 daily. MD Mary lorenzo [facility] cyanocobala Yes 2500ug Take 2,500 Univers min 4-01 mcg by ity of (vitamin 02:07: mouth [place] B-12) 1000 37 daily. MD mcg tablet Anderso [facility] omega-3 Yes 1g Take 1 g Univer s fatty -01 by mouth ity of acids/fish 02:07: daily. [place] oil (fish 37 oil-omega-3 Anderso fatty n acids) Cancer 300-1,000 Center mg capsule melatonin 3 Yes 3mg Take 3 mg U nivers mg tablet 01 by mouth ity of 02:07: nightly as [place] 37 needed. MD Mary lorenzo [facility] ibuprofen 2020-06 Yes Malignant 600mg Take 1 Univers (ADVIL,MOTR 1-11 neoplasm of tablet ity of IN) 600 mg 00:00: endometrium (600 mg) [place] tablet 00 by mouth every 6 Anderso (six) n hours as Cancer needed for Center mild pain or moderate pain. acetaminoph 2020-06 Yes Malignant 1000mg Take 2 Univers en (Tylenol 0-15 neoplasm of tablets ity of Extra 00:00: endometrium (1,000 mg) [place] Strength) 00 by mouth 500 mg every 6 Anderso tablet (six) n hours. Cancer Center senna-docus 2020-06 Yes Malignant 1{tbl} Take 1 Univers ate 0-15 neoplasm of tablet by ity of (SENOKOT-S) 00:00: endometrium mouth [place] 8.6 mg-50 00 twice MD mg tablet daily. Jim bj [facility] Center Sprintec 28 Sprintec Yes Joshua 1 tablet Common 1-25 Rekhi Spirit 00:00: - CHI 00 [facility] Vitamin D-3 Vitamin D-3 Yes Joshua 1 tablet Common [facility] Vitamin C Vitamin C Yes Joshua 1 tablet [facility] Immunizations Ordered Filled Immunization Date Status Comments [facility] e Immunization Name Name Moderna SARS-CoV-2 2020-07-12 Completed Univer sity of Vaccination 00:00:00 [facility] SARS-[facility]2 2020-06-10 Completed Univer sity of Vaccination 00:00:00 Myesha yeboah [facility] Vital Signs Vital Name Observation Time Observation Value Comments Source Systolic blood 2022-03-23 12:57:40 152 mm[Hg] Univer sity of pressure Myesha Fernandez on Cancer Center Diastolic blood 2022-03-23 12:57:40 83 mm[Hg] Unive rsity of pressure Myesha Fernandez on Cancer Center Heart rate 2022-03-23 12:57:40 73 /min [facility] Myesha Fernandez on Cancer Center Body temperature 2022-03-23 12:57:40 36.61 [place] [facility] My[facility] on Cancer Center Respiratory rate 2022-03-23 12:57:40 18 /min [facility] Myesha Fernandez on Cancer Center Body weight 2022-03-23 12:57:[address] [facility] Myesha Fernandez on Cancer Center BMI 2022-03-23 12:57:40 25.46 kg/m2 [facility] Myesha Fernandez on Cancer Center Procedures This patient has no known procedures. Plan of Care Planned Activity Planned Date Details Comments Source Future Scheduled 2022-11-06 COVID-19 [facility] 11:40:55 (3 - Moderna series) MD Scott yeboah Cancer [code = COVID-19 Center Vaccination (3 - Moderna series)] Encounters Start End Encounter Admission Attending Care Care Encounter Source Date/Time Date/Time Type Type Clinicians Facility Department ID 2022-11-05 [facility] Dain [id number] [facility] 2021-10-02 Outpatient MERLY Sultana Common 11:03:02 Dain [id number] [facility] 2021-07-09 Outpatient MERLY Sultana Common 14:22:39 Dain [id number] [facility] 2021-04-23 Outpatient SYSTEM, MDA MDA [id number] 15:25:49 PROVIDER Jim lorenzo 2021-02-11 Outpatient SYSTEM, TAE STRONG [id number] 10:47:20 PROVIDER Jim lorenzo 2022-03-23 2022-03-23 Office Bhargav Eric [id number] [facility] 08:00:00 08:30:00 Visit Rachell Hurt [id number] ity of 3.412.2.7 [place] .3.735671 .8 [facility] 2022-03-23 2022-03-23 Outpatient GERDA JEANETH TAE MDA [id number] 07:50:42 07:50:42 BHARGAV lorenzo 2022-03-23 2022-03-23 [facility] [id number] Univers 00:00:00 00:00:00 [id number] ity of 3.412.2.7 [id number] [place] .[id number] 084.8 .8 [facility] 2021-10-20 2021-10-20 Outpatient GERDA JEANETH TAE STRONG [id number] 08:30:26 08:30:26 BHARGAV lorenzo 2021-06-23 2021-06-23 Outpatient GERDA ERIC TAE STROGN [id number] 14:12:48 14:12:48 BHARGAV lorenzo 2021-05-29 2021-05-29 Outpatient RACHELL WILEY MDA MDA [id number] MD 11:45:00 23:59:00 Jim lorenzo 2021-05-29 2021-05-29 Outpatient GERDA ERIC, MDA MDA [id number] MD 13:44:36 14:58:10 BHARGAV lorenzo 2021-05-05 2021-05-05 Outpatient GERDA ERIC, MDA MDA [id number] MD 09:40:33 09:40:33 BHARGAV lorenzo 2021-04-24 2021-04-24 Outpatient GERDA ERIC, MDA MDA [id number] MD 15:12:29 23:59:00 BHARGAV lorenzo 2021-04-24 2021-04-24 Outpatient GERDA ERIC, MDA MDA [id number] MD 14:27:41 15:08:50 BHARGAV lorenzo 2021-04-14 2021-04-14 Outpatient EL MDA MDA [id number] MD 10:44:42 11:02:19 Jim lorenzo 2021-04-14 2021-04-14 Outpatient GERDA ERIC, MDA MDA [id number] MD 11:02:14 11:02:14 BHARGAV lorenzo 2021-04-03 2021-04-04 Outpatient ER OCTAVIO, MDA Emergency [id number] MD 18:06:00 14:56:00 JAVIER lorenzo 2021-04-03 2021-04-03 Outpatient EL MDA MDA [id number] MD 10:30:49 10:41:14 Jim lorenzo 2021-03-28 2021-03-28 Outpatient GERDA ERIC, MDA 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 [id number] 05:18:00 17:51:00 BHARGAV Rausch so bj 2021-03-26 2021-03-26 Outpatient EL MDA MDA [id number] MD 08:45:00 23:59:00 Jim lorenzo 2021-03-26 2021-03-26 Outpatient EL CHARLA, MDA MDA [id number] MD 07:31:11 08:57:18 HUGH lorenzo 2021-03-26 2021-03-26 Outpatient EL CHARLA, MDA MDA [id number] MD 07:54:46 08:44:00 HUGH lorenzo 2021-03-25 2021-03-25 Outpatient EL MDA MDA [id number] 08:37:56 09:15:05 Jim lorenzo 2021-03-24 2021-03-24 Outpatient GERDA ERIC MDA MDA [id number] 07:43:10 07:43:10 BHARGAV lorenzo 2021-03-24 2021-03-24 Outpatient GERDA DUNHAM MDA MDA [id number] 07:02:51 07:08:54 HUGH lorenzo 2021-03-07 2021-03-07 Outpatient GERDA DUNHAM MDA MDA [id number] 14:47:08 14:47:08 HUGH lorenzo 2021-03-05 2021-03-05 Outpatient EL MDA MDA [id number] 06:35:50 23:59:00 Jim lorenzo 2021-03-05 2021-03-05 Outpatient EL JOAQUIN MDA MDA [id number] 08:25:15 10:08:53 GIOVANNY lorenzo 2021-03-05 2021-03-05 Outpatient EL MDA MDA [id number] 06:57:05 06:57:05 Jim lorenzo 2021-02-28 2021-02-28 Outpatient GERDA DUNHAM MDA MDA [id number] 06:06:16 06:06:16 HUGH lorenzo 2021-02-24 2021-02-24 Outpatient EL MDA MDA [id number] 10:30:57 10:47:54 Jim lorenzo 2021-02-24 2021-02-24 Outpatient GERDA ERIC MDA MDA [id number] 10:34:21 10:34:21 BHARGAV lorenzo 2019-02-16 2019-02-16 [id number] Common 09:30:00 09:30:00 [facility] 2018-10-28 2018-10-28 [facility] [id number] Common 10:45:00 10:45:00 [facility] 2018-08-05 2018-08-05 [facility] [id number] Common 10:00:00 10:00:[address] [facility] 2018-07-08 2018-07-08 [facility] [id number] Common 12:09:00 12:09:[address] [facility] 2018-07-08 2018-07-08 [facility] [id number] Common 09:45:00 09:45:[address] [facility] 2018-02-15 2018-02-15 [facility] [id number] Common 11:15:00 11:15:[address] [facility] Results This patient has no known results.
--- OUTSIDE RECORDS SUMMARY | 2022-11-20 08:45 | XMS REPORT | Clinical Summary ---
:1975 Author Organization [facility] MD [facility] Address [address] [place] [address] Care Team Providers Name Role Phone Silvio Alfonso MD Primary Care Provider Pratima Gomes MD Unavailable Allergies No known active allergies Medications Medication Sig Dispensed Refills Start Date End Date Status ascorbic acid, vitamin daily. 0 Active C, (vitamin C) 1000 mg tablet cholecalciferol, daily. 0 Act dionna vitamin D3, (Vitamin D3) 5,000 units tab tablet folic acid (FOLVITE) Take 400 mcg by 0 Active 400 mcg tablet mouth daily. garlic 1,000 mg cap Take 2,000 mg by 0 Active mouth daily. cyanocobalamin (vitamin Take 2,500 mcg by 0 Active B-12) 1000 mcg tablet mouth daily. omega-3 fatty Take 1 g by mouth 0 Active acids/fish oil (fish daily. oil-omega-3 fatty acids) 300-1,000 mg capsule melatonin 3 mg tablet Take 3 mg by 0 Active mouth nightly as needed. acetaminophen (Tylenol Take 2 tablets 60 tablet 0 03/28/2021 Active Extra Strength) 500 mg (1,000 mg) by tabletIndications: mouth every 6 Malignant neoplasm of (six) hours. endometrium senna-docusate Take 1 tablet by 60 tablet 0 03/28/2021 Active (SENOKOT-S) 8.6 mg-50 mouth twice mg tabletIndications: daily. Malignant neoplasm of endometrium ibuprofen Take 1 tablet 60 tablet 1 04/24/2021 Activ e (ADVIL,MOTRIN) 600 mg (600 mg) by mouth tabletIndications: every 6 (six) Malignant neoplasm of hours as needed endometrium for mild pain or moderate pain. Active Problems Problem Noted Date Acute posthemorrhagic anemia 04/04/2021 Hematoma 04/04/2021 Liver function tests abnormal 04/04/2021 Cancer associated pain 04/04/2021 Essential hypertension 02/24/2021 Irregular menstruation 02/24/2021 Excessive and frequent menstruation with irregular cyc le 02/24/2021 Leiomyoma of uterus 02/24/2021 Asthma 02/24/2021 Anemia due to chronic blood loss 02/24/2021 Malignant neoplasm of endometrium 02/24/2021 Cancer Staging: Clinical stage from 03/15: Stage IA (Primary) - Signed by Silvio Alfonso MD on 04/29/2021 Encounters Date Type Specialty Care Team Description 03/23/2022 Office Visit Gynecology Silvio Alfonso M D Malignant neoplasm of UnRachell [place] endometrium (Primary Dx) 03/23/2022 Travel after 11/20/2021 Immunizations Name Administration Dates Next Due Moderna SARS-CoV-2 Vaccination 07/12/2020, 06/10/2020 Surgical History Surgery Date Site/Laterality Comments [place] LAPAROSCOPY TOT 03/28/2021 N/A Procedure: RO BOTIC ASSISTED HYSTERECTOMY >250 G TOTAL HYSTER ECTOMY; Surgeon: W/NACHO/OVAR Silvio Alfonso MD ; Location: MAIN OR; Service : INSULATION MANAGER - GYNECOLOGIC ONCO LOGY [place] SALPINGO-OOPHORECTOMY 03/28/2021 Bilateral Procedu re: ROBOTIC ASSISTED COMPL/PRTL UNI/BI SPX SALPINGECT DES; Surgeon: Silvio Alfonso MD; Loca tion: MAIN OR; Service: INSULATION MANAGER - GYNECOLOGIC ONCO LOGY [place] INTRAOP SENTINEL LYMPH 03/28/2021 Bilateral Proced ure: INTRAOPERATIVE NODE ID W/DYE INJECTION LYMPHATI C MAPPING; Surgeon: Silvio Alfonso MD ; Location: MAIN OR; Service : INSULATION MANAGER - GYNECOLOGIC ONCO LOGY [place] LMTD LMPHADEC STAGING 03/28/2021 Abdomen/Bilateral Proce dure: LIMITED SPX PEL&PARA-AORTIC LYMPHADENECT DES FOR STAGING; PELVIC AND PARA- AORTIC LYMPH NODES; Surgeon: Silvio Alfonso MD; Location: [place]; Service: INSULATION MANAGER - G YNECOLOGIC ONCOLOGY Medical History Medical History Date Comments Asthma 1990 Uterine leiomyoma 2017 Anemia 2019 Blood transfusion, without reported diagnosis june 2018 Family History Medical History Relation Name Comments Breast cancer Cousin Diabetes Father Hypertension Father Stroke Father Asthma Mother Diabetes Mother Heart disease Mother Hypertension Mother Relation Name Status Comments Cousin Other paternal Father Mother Social History Tobacco Use Types Packs/Day Years Used Date Smoking Tobacco: Never Smokeless Tobacco: Never Alcohol Use Standard Drinks/Week Comments Never 0 (1 standard drink = 0.6 oz pure alcoho l) Sex Assigned at Date Recorded Not on file Job Start Date Occupation Industry Not on file Not on file Not on file Obstetrics History Para Term AB IAB SAB Ectopic Multiple Living Live Births 0 0 0 0 0 0 0 0 0 0 0 Last Filed Vital Signs Vital Sign Reading Time Taken Comments Blood Pressure 152/83 03/23/2022 7:57 AM CDT Pulse 73 03/23/2022 7:57 AM CDT Temperature 36.6 C (97.9 F) 03/23/2022 7:57 AM CDT Respiratory Rate 18 03/23/2022 7:57 AM CDT Oxygen Saturation - - Inhaled Oxygen Concentration - - Weight 59.6 kg (131 lb 6.3 oz) 03/23/2022 7:57 AM CDT Height - - Body Mass Index 25.46 04/03/2021 10:14 PM CDT Plan of Treatment Date Type Specialty Care Team Description 02/08/2023 Follow-Up Gynecology Silvio Alfonso M D [address] [place], [place] [address] (Wo rk) Health Maintenance Due Date Last Done Comments COVID-19 Vaccination (3 - Moderna series) 09/06/20202020, 06/10/2020 Results Not on fileafter 11/20/2021 Insurance Payer Benefit Plan / Subscriber ID Effective Dates Phone Addre ss Type Group [employer] [place] PPO POS [id number] 2021-Present [id number] [place] [address] Advance Directives Code Status Date Activated Date Inactivated Comments Full Code 04/04/2021 1:56 AM 04/04/2021 4:56 PM Care Teams 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
[2022-11-20] MEDS ORDERED: KETOROLAC 30 MG/ML INJ ONE (09:30)
--- NOTE | 2022-11-20 10:23 | RAD REPORT ---
EXAM DESCRIPTION: RAD - Lumbar Spine 3 Views - 11/20/2022 9:10 am CLINICAL HISTORY: low back pain Radiculopathy COMPARISON: Lumbar Spine 3 Views dated 09/08/2021 FINDINGS: Vertebral body heights appear maintained. No compression fracture noted. Disc spaces are m aintained. No spondylolysis or spondylolisthesis. IMPRESSION: Negative study.
--- NOTE | 2022-11-20 10:27 | EDPHYS ---
Physician Documentation [facility] Name: Lissy Angel Age: 46 yrs Sex: Female : 1975 Arrival Date: 11/20/2022 Time: 08:27 Bed 9 Private MD: ED Physician Nicko Sanders HPI: 11/20 08:47 This 46 yrs old Female presents to ER via Ambulatory with complaints of Back Pain.jmm 08:47 The patient presents with pain that is acute. The symptoms are located in the right low jmm back. Onset: The symptoms/episode began/occurred gradually, 1 day(s) ago. The pain radiates to the buttocks. Associated signs and symptoms: Pertinent negatives: numbness, weakness. 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 Pain radiates in to the right buttocks. . Historical: - Allergies: 09:21 NKDA; ld1 - PMHx: 09:21 uterine cancer; ld1 - PSHx: 09:21 hysterectomy; ld1 - Immunization history:: Adult Immunizations up to date, Client reports receiving the 2nd dose of the Covid vaccine. - Social history:: Smoking status: Patient denies any tobacco usage or history of. Patient/guardian denies using alcohol. ROS: 08:47 Constitutional: Negative for fever, chills, and weight loss, Cardiovascular: Negative jmm for chest pain, palpitations, and edema, Respiratory: Negative for shortness of breath, cough, wheezing, and pleuritic chest pain. 08:47 Back: Positive for pain with movement. 08:47 All other systems are negative. Exam: 08:47 Constitutional: This is a well developed, well nourished patient who is awake, alert, jmm and in no acute distress. Head/Face: atraumatic. Eyes: EOMI, no conjunctival erythema appreciated ENT: Moist Mucus Membranes Neck: Trachea midline, Supple Chest/axilla: Normal chest wall appearance and motion. Cardiovascular: Regular rate and rhythm. No edema appreciated Respiratory: Normal respirations, no respiratory distress appreciated Abdomen/GI: Non distended 08:47 Skin: General appearance color normal MS/ Extremity: Moves all extremities, no obvious deformities appreciated, no edema noted to the lower extremities Neuro: Awake and alert Psych: Behavior is normal, Mood is normal, Patient is cooperative and pleasant 08:47 Back: pain, that is moderate, vertebral tenderness, is appreciated at L1, L2 and L3. Vital Signs: 09:20 BP 173 / 98; Pulse 101; Resp 18; Temp 97.8(TE); Pulse Ox 100% on R/A; Weight 60.33 kg; ld1 Height 5 ft. 0 in. ; Pain 6/10; 10:46 BP 155 / 96; Pulse 89; Resp 17; Pulse Ox 99% on R/A; Pain 1/10; nj1 09:20 Body Mass Index 25.97 (60.33 kg, 152.4 cm) ld1 09:20 Pain Scale: Adult ld1 10:46 Pain Scale: Adult nj1 MDM: 08:47 Patient medically screened. m 13:05 Differential diagnosis: spinal injury, sprain. Data reviewed: vital signs, nurses [facility] notes, radiologic studies, plain films. I considered the following discharge prescriptions or medication management in the emergency department Medications were administered in the Emergency Department. See MAR. Independent interpretation of the following test(s) in the Emergency Department X-Ray: My interpretation is No fracture appreciated. Counseling: I had a detailed discussion with the patient and/or guardian regarding: the historical points, exam findings, and any diagnostic results supporting the discharge/admit diagnosis, lab results, radiology results, the need for outpatient follow up, to return to the emergency department if symptoms worsen or persist or if there are any questions or concerns that arise at home. 11/20 08:48 Order name: Lumbar Spine (3 Views) XRAY; Complete Time: 10:24 [facility] Administered Medications: 09:26 Drug: Ketorolac IM 30 mg Route: IM; Site: left gluteus; nj1 09:57 Follow up: Response: No adverse reaction; Pain is decreased nj1 Disposition: 11:49 Co-signature as Attending Physician, Nicko Sanders MD I reviewed the patient's care rt provided by the Advanced Practice Provider and agree with the diagnosis and treatment plan. Disposition Summary: 11/20/22 10:26 Discharge Ordered Location: Home [facility] Condition: Stable [facility] Diagnosis - Strain of muscle, fascia and tendon of abdomen, lower back and pelvis [facility] Followup: [facility] - With: Private Physician - When: 2 - 3 days - Reason: Recheck today's complaints, Continuance of care, Re-evaluation by your physician Discharge Instructions: - Discharge Summary Sheet jm - Low Back Sprain or Strain Rehab [facility] Forms: - Work release form jmm - Medication Reconciliation Form [facility] - Thank You Letter pietro - Antibiotic Education pietro - Prescription Opioid Use [facility] Prescriptions: - Zanaflex 4 mg Oral Tablet - take 1 tablet by ORAL route every 8 hours As needed; 20 tablet; Refills: 0, [facility] Product Selection Permitted - Diclofenac Sodium 75 mg Oral Tablet Sustained Release - take 1 tablet by ORAL route 2 times per day; 30 tablet; Refills: 0, Product [facility] Selection Permitted Signatures: Dispatcher [employer] Noe Koch PA PA jmm Sims, Lauren, RN RN ld1 Nicko Sanders MD MD rt Bonnie Rascon RN RN nj1
--- NOTE | 2022-11-20 10:27 | ER ---
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 Coronavirus screen: At this time, the client does not indicate any symptoms associated with coronavirus-19. Ebola Screen: No symptoms or risks identified at this time. Initial Sepsis Screen: Does the patient meet any 2 criteria? No. Patient's initial sepsis screen is negative. Does the patient have a suspected source of infection? No. Patient's initial sepsis screen is negative. Risk Assessment: Do you want to hurt yourself or someone else? Patient reports no desire to harm self or others. Onset of symptoms was November 20, 2022. 09:20 Method Of Arrival: Ambulatory ld1 09:20 Acuity: [place] 4 ld1 Triage Assessment: 09:21 General: Appears in no apparent distress. comfortable, Behavior is calm, cooperative, ld1 appropriate for age. Pain: Complains of pain in back Pain does not radiate. Pain currently is 6 out of 10 on a pain scale. Quality of pain is described as throbbing. EENT: No signs and/or symptoms were reported regarding the EENT system. Neuro: Level of Consciousness is awake, alert, obeys commands, Oriented to person, place, time, situation. Cardiovascular: Capillary refill < 3 seconds Patient's skin is warm and dry. Respiratory: Airway is patent Respiratory effort is even, unlabored. GI: Abdomen is flat, non-distended. : No signs and/or symptoms were reported regarding the genitourinary system. Derm: No signs and/or symptoms reported regarding the dermatologic system. Musculoskeletal: No signs and/or symptoms reported regarding the musculoskeletal system. Historical: - Allergies: : NKDA; ld1 - PMHx: : uterine cancer; ld1 - PSHx: : hysterectomy; ld1 - Immunization history:: Adult Immunizations up to date, Client reports receiving the 2nd dose of the Covid vaccine. - Social history:: Smoking status: Patient denies any tobacco usage or history of. Patient/guardian denies using alcohol. Screenin:26 [facility] ED Fall Risk Assessment (Adult) History of falling in the last 3 months, nj1 including since admission No falls in past 3 months (0 pts) Confusion or Disorientation No (0 pts) Intoxicated or Sedated No (0 pts) Impaired Gait No (0 pts) Mobility Assist Device Used No (0 pt) Altered Elimination No (0 pt) Score/Fall Risk Level 0 - 2 = Low Risk Oriented to surroundings, Maintained a safe environment, Hourly rounding (assess needs \T\ fall precautionary measures) done. Abuse screen: Denies threats or abuse. Denies injuries from another. Nutritional screening: No deficits noted. Tuberculosis screening: No symptoms or risk factors identified. Assessment: 09:26 Reassessment: Patient appears in no apparent distress at this time. Patient and/or nd1 family updated on plan of care and expected duration. Pain level reassessed. Patient is alert, oriented x 3, equal unlabored respirations, skin warm/dry/pink. Pain: Complains of pain in back Pain currently is 6 out of 10 on a pain scale. 09:55 Pain: Pain currently is 1 out of 10 on a pain scale. nj1 09:55 Reassessment: Patient states feeling better. Patient states symptoms have improved. nd1 10:45 Reassessment: Patient appears in no apparent distress at this time. Patient and/or nj1 family updated on plan of care and expected duration. Pain level reassessed. Patient is alert, oriented x 3, equal unlabored respirations, skin warm/dry/pink. Pain: Complains of pain in back Pain currently is 1 out of 10 on a pain scale. Vital Signs: 09:20 BP 173 / 98; Pulse 101; Resp 18; Temp 97.8(TE); Pulse Ox 100% on R/A; Weight 60.33 kg; ld1 Height 5 ft. 0 in. ; Pain 6/10; 10:46 BP 155 / 96; Pulse 89; Resp 17; Pulse Ox 99% on R/A; Pain 1/10; nj1 09:20 Body Mass Index 25.97 (60.33 kg, 152.4 cm) ld1 09:20 Pain Scale: Adult ld1 10:46 Pain Scale: Adult nj1 ED Course: 08:29 Patient arrived in ED. ts1 08:30 Noe Padilla PA is PHCP. [facility] 08:30 Nicko Sanders MD is Attending Physician. jm 09:12 Lumbar Spine (3 Views) XRAY In Process Unspecified. EDMS 09:18 Bonnie Rascon, RN is Primary Nurse. nj1 09:21 Triage completed. ld1 09:21 Arm band placed on right wrist. ld1 09:27 Patient has correct armband on for positive identification. Bed in low position. Call [facility] light in reach. 10:46 No provider procedures requiring assistance completed. nj1 10:47 Patient did not have IV access during this emergency room visit. nj1 Administered Medications: 09:26 Drug: Ketorolac IM 30 mg Route: IM; Site: left gluteus; nj1 09:57 Follow up: Response: No adverse reaction; Pain is decreased nj1 Medication: 10:46 VIS not applicable for this client. nj Outcome: 10:26 Discharge ordered by MD. [facility] 10:46 Discharged to home ambulatory. nj1 10:46 Condition: stable 10:46 Discharge instructions given to patient, Instructed on discharge instructions, follow up and referral plans. medication usage, Demonstrated understanding of instructions, follow-up care, medications, Prescriptions given X 2. 10:47 Patient left the ED. [facility] Signatures: Dispatcher [employer] EDDE Noe Padilla PA PA [facility] Claudia Knowles RN RN ld1 Bonnie Rascon RN RN nj1 Nessa Jha PAS PAS ts1 Corrections: (The following items were deleted from the chart) 59 09:58 Pain: Pain currently is 1 out of 10 on a pain scale. nj1 nj 59 09:58 Reassessment: Patient states feeling better. Patient states symptoms have nj1 improved. nj1 59 09:55 Pain: Pain currently is 9 out of 10 on a pain scale. nj nj
[2022-11-20 10:58] VITALS: TEMP 97.8
[2022-11-20 10:59] VITALS: BP 155/96; O2SAT 99
== END 2022-11-20 10:47 | disposition home or self-care (01) ==
LOC: ER 08:27
DX: S39.011A Strain of muscle, fascia and tendon of abdomen, initial encounter (principal); S39.012A Strain of muscle, fascia and tendon of lower back, initial encounter; S39.013A Strain of muscle, fascia and tendon of pelvis, initial encounter; Z85.42 Personal history of malignant neoplasm of other parts of uterus
CPT/HCPCS: 72100; 96372; 99284

== ENCOUNTER 2023-10-21 07:38 | Emergency (ER) | payer OTHER ==
--- OUTSIDE RECORDS SUMMARY | 2023-10-21 07:41 | XMS REPORT | Clinical Summary ---
Author Name Unknown Organization [facility] Address [address] [place] [address] Care Team Providers Care Assistant Product Manager Name Role Phone Silvio Alfonso MD Primary Care Provider Unavailab Pratima Li MD Unavailable [phone] Maegan Trinidad MD Unavailable [phone] Allergies No known active allergies Medications Medication Sig Dispensed Refills Start Date End Date Status ascorbic acid, vitamin C, (vitamin C) 1000 mg tablet daily. 0 Active cholecalciferol, vitamin D3, (Vitamin D3) 5,000 units tab tablet daily. 0 Active garlic 1,000 mg cap Take 2,000 mg by mouth daily. 0 Active omega-3 fatty acids/fish oil (fish oil-omega-3 fatty acids) 300-1,000 mg capsule Take 1 g by mouth daily. 0 Active melatonin 3 mg tablet Take 3 mg by mouth nightly as needed. 0 Active acetaminophen (Tylenol Extra Strength) 500 mg tabletIndications: Malignant neoplasm of endometrium Take 2 tablets (1,000 mg) by mouth every 6 (six) hours. 60 tablet 0 03/28/2021 Active senna-docusate (SENOKOT-S) 8.6 mg-50 mg tabletIndications: Malignant neoplasm of endometrium Take 1 tablet by mouth twice daily. 60 tablet 0 03/28/2021 Active ibuprofen (ADVIL,MOTRIN) 600 mg tabletIndications: Malignant neoplasm of endometrium Take 1 tablet (600 mg) by mouth every 6 (six) hours as needed for mild pain or moderate pain. 60 tablet 1 04/24/2021 Active cyclobenzaprine (FLEXERIL) 10 mg tablet Take 1 tablet (10 mg) by mouth nightly as needed. 0 01/26/2023 Active folic acid (FOLVITE) 400 mcg tablet Take 400 mcg by mouth daily. 0 02/08/2023 Discontinued (Not Applicable) cyanocobalamin (vitamin B-12) 1000 mcg tablet Take 2,500 mcg by mouth daily. 0 02/08/2023 Discontinued (Not Applicable) Active Problems Problem Noted Date Diagnosed Date Acute posthemorrhagic anemia 04/04/2021 Hematoma 04/04/2021 Liver function tests abnormal 04/04/2021 Cancer associated pain 04/04/2021 Essential hypertension 02/24/2021 Irregular menstruation 02/24/2021 Excessive and frequent menstruation with irregul ar cycle 02/24/2021 Leiomyoma of uterus 02/24/2021 Asthma 02/24/2021 Anemia due to chronic blood loss 02/24/2021 Malignant neoplasm of endometrium 02/24/2021 Cancer Staging:Clinical stage from 04/07/2021:Stage IA(Primary) - Signed by Silvio Alfonso MD on 04/29/2021 Encounters Date Type Department Care Team Description 02/08/2023 11:00 AM CDT Follow-Up MD [facility]ne[facility] [address] [place] [id number] Silvio Alfonso MD Malignant neoplasm of endometrium (Primary Dx) 02/08/2023 Travel after 10/21/2022 Immunizations Name Administration Dates Next Due Moderna SARS-CoV-2 Vaccination 07/12/2020,2019 Surgical History Surgery Date Site/Laterality Comments CA LAPAROSCOPY TOT HYSTERECTOMY >250 G W/TUBE/OVAR 03/28/2021 N/A Procedure: ROBOTIC ASSISTED TOTAL HYSTERECTOMY; Surgeon: Silvio Alfonso MD; Location: MAIN OR; Service: GENERAL INTERN - GYNECOLOGIC ONCOLOGY CA SALPINGO-OOPHORECTOMY COMPL/PRTL UNI/BI SPX 03/28/2021 Bilateral Procedure: ROBOTIC ASSISTED SALPINGECTOMY; Surgeon: Silvio Alfonso MD; Location: MAIN OR; Service: GENERAL INTERN - GYNECOLOGIC ONCOLOGY CA INTRAOP SENTINEL LYMPH NODE ID W/DYE INJECTION 03/28/2021 Bilateral Procedure: INTRAOPERATIVE LYMPHATIC MAPPING; Surgeon: Silvio Alfonso MD; Location: MAIN OR; Service: GENERAL INTERN - GYNECOLOGIC ONCOLOGY CA LMTD LMPHADEC STAGING SPX PEL&PARA-AORTIC 03/28/2021 Abdomen/Bilateral Procedure: LIMITED LYMPHADENECTOMY FOR STAGING; PELVIC AND PARA-AORTIC LYMPH NODES; Surgeon: Silvio Alfonso MD; Location: MAIN OR; Service: GENERAL INTERN - GYNECOLOGIC ONCOLOGY Medical History Medical History Date Comments Asthma 1989 Uterine leiomyoma 2016 Anemia 2019 Blood transfusion, without reported diagnosis ja nuary 2018 Family History Medical History Relation Name Comments Breast cancer Cousin Diabetes Father Hypertension Father Stroke Father Asthma Mother Diabetes Mother Heart disease Mother Hypertension Mother Relation Name Status Comments Cousin Other paternal Father Mother Social History Tobacco Use Types Packs/Day Years Used Date Smoking Tobacco: Never Smokeless Tobacco: Never Alcohol Use Standard Drinks/Week Comments Never 0 (1 standard drink = 0.6 oz pur e alcohol) Sex and Gender Information Value Date Recorded Sex Assigned at Not on file Gender Identity Not on file Sexual Orientation Not on file Job Start Date Occupation Industry Not on file Not on file Not on file Obstetrics History Para Term AB IAB SAB Ectopic Multiple Livin g Live Births 0 0 0 0 0 0 0 0 0 0 0 Last Filed Vital Signs Vital Sign Reading Time Taken Comments Blood Pressure 154/88 02/08/2023 10:51 AM CDT Pulse 106 02/08/2023 10:51 AM CDT Temperature 36.8 C (98.2 F) 02/08/2023 10:51 AM C DT Respiratory Rate 18 02/08/2023 10:51 AM CDT Oxygen Saturation - - Inhaled Oxygen Concentration - - Weight 60 kg (132 lb 4.4 oz) 02/08/2023 10:50 AM CDT Height - - Body Mass Index 25.63 04/03/2021 10:14 PM CDT Plan of Treatment Upcoming Encounters Date Type Department Care Team Description 02/21/2024 9:30 AM CDT Follow-Up MD [facility]ne[facility] [address] [place] [address] Carlos Enrique Echevarria MD [address] [place] [address] Health Maintenance Due Date Last Done Comments COVID-19 Vaccine ( season) 2023, 06/10/2020 Influenza Vaccine 02/13/2024 Advance Directives Latest Code Status on File Code Status Date Activated Date Inactivated Comments Full Code 04/04/2021 1:56 AM 04/04/2021 4:56 PM Care Teams Assistant Product Manager Relationship Specialty Start Date End Date Silvio Alfonso MD PCP - General Gynecological Oncology 02/11/21 Pratima Gomes MD [address] [place] [id number] PCP - External Referring Obstetrics/Gynecology 02/11/21 Maegan Trinidad MD [address] [place] [id number] Consulting Physician Gynecologic Medical Oncology 03/05/21
[2023-10-21] MEDS ORDERED: ACETAMINOPHEN 325 MG TABLET ONE (07:56)
--- NOTE | 2023-10-21 08:08 | ER ---
Nurse's Notes 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 pt c/o right wrist pain. 07:41 Coronavirus screen: At this time, the client does not indicate any symptoms associated aa5 with coronavirus-19. Ebola Screen: Patient denies travel to an Ebola-affected area in the 21 days before illness onset. Initial Sepsis Screen: Does the patient meet any 2 criteria? No. Patient's initial sepsis screen is negative. Does the patient have a suspected source of infection? No. Patient's initial sepsis screen is negative. Risk Assessment: Do you want to hurt yourself or someone else? Patient reports no desire to harm self or others. Onset of symptoms was October 21, 2023. 07:41 Method Of Arrival: Ambulatory aa5 07:41 Acuity: BROOK[place]NN 3 aa5 Triage Assessment: 08:00 General: Appears in no apparent distress. uncomfortable, Behavior is calm, cooperative, bp appropriate for age. Musculoskeletal: Circulation, motion, and sensation intact. Range of motion: intact in all extremities. Injury Description: Bruise sustained to dorsal aspect of right wrist. Historical: - Allergies: 07:50 NKDA; aa5 07:50 diclofenac; aa5 - PMHx: 07:50 Asthma; uterine cancer; vitiligo (Unknown); von willebrand disease (Unknown); aa5 - PSHx: 07:50 hysterectomy; aa5 - Immunization history:: Adult Immunizations up to date. - Infectious Disease History:: Denies. - Family history:: not pertinent. - Social history:: Smoking status: Patient denies any tobacco usage or history of. Screenin:30 [facility] ED Fall Risk Assessment (Adult) History of falling in the last 3 months, bp including since admission No falls in past 3 months (0 pts). Abuse screen: Denies threats or abuse. Denies injuries from another. Nutritional screening: No deficits noted. Tuberculosis screening: No symptoms or risk factors identified. Assessment: 08:15 Reassessment: DC ON HOLD PENDING XRAY. Pain: Complains of pain in dorsal aspect of bp right wrist. 10:00 Reassessment: DC HOME AMBULATORY. bp Vital Signs: 07:41 BP 186 / 92; Pulse 112; Resp 18 S; Temp 98.2(O); Pulse Ox 100% on R/A; Weight 58.97 kg aa5 (R); Height 5 ft. 0 in. (R); 08:30 BP 139 / 92; Pulse 90; Resp 16; Pulse Ox 98% ; bp 07:41 Body Mass Index 25.39 (58.97 kg, 152.4 cm) [facility] ED Course: 07:40 Patient arrived in ED. rg4 07:41 Arm band placed on. aa 07:44 Jaden Disla MD is Attending Physician. [facility] 07:50 Triage completed. [facility] 07:50 Bunny Peña, RN is Primary Nurse. bp 08:07 Camron Judge MD is Referral Physician. scout 08:30 Patient has correct armband on for positive identification. bp 08:30 Gian wrap to dorsal aspect of right wrist. bp 09:02 Wrist Right 3 View XRAY In Process Unspecified. EDMS 10:12 No provider procedures requiring assistance completed. Patient did not have IV access bp during this emergency room visit. Administered Medications: 08:00 Drug: Acetaminophen PO 650 mg PO once Route: PO; bp Outcome: 08:07 Discharge ordered by . scout 10:12 Discharged to home ambulatory, bp 10:12 Condition: stable 10:12 Discharge instructions given to patient, Instructed on discharge instructions, follow up and referral plans. medication usage, Demonstrated understanding of instructions, follow-up care, medications, Prescriptions given X 1, 10:12 Patient left the ED. bp Signatures: Dispatcher [employer] EDMS Jaden Disla MD MD cha Calderon, Audri, RN RN 5 [facility]elin [facility] Bunny Peña RN RN bp Corrections: (The following items were deleted from the chart) 07:52 07:48 Arm band placed on [place] [id number] 07:52 07:41 Acuity: [place] 4 [place] [id number]
--- NOTE | 2023-10-21 08:08 | EDPHYS ---
Physician Documentation [facility] Name: Lissy Angel Age: 47 yrs Sex: Female : 1975 Arrival Date: 10/21/2023 Time: 07:38 Bed 20 Private MD: JORDI Physician Jaden Disla HPI: 10/20 07:47 This 47 yrs old Female presents to ER via Unassigned with complaints of Wrist scout Injury. 07:47 The patient or guardian reports decreased range of motion, pain. The complaints affect scout the right wrist diffusely. Context: The problem was sustained at work. Onset: The symptoms/episode began/occurred just prior to arrival, this morning. Modifying factors: The symptoms are alleviated by holding still, pressure to area, the symptoms are aggravated by movement, dependent position. Associated signs and symptoms: Pertinent negatives: cyanosis distally, decreased sensation distally, fever, nausea, numbness distally, tingling distally, vomiting. Compartment Syndrome negative for numbness, tingling. The patient has not experienced similar symptoms in the past. Historical: - Allergies: 07:50 NKDA; aa5 07:50 diclofenac; aa5 - PMHx: 07:50 Asthma; uterine cancer; vitiligo (Unknown); von willebrand disease (Unknown); aa5 - PSHx: 07:50 hysterectomy; aa5 - Immunization history:: Adult Immunizations up to date. - Infectious Disease History:: Denies. - Family history:: not pertinent. - Social history:: Smoking status: Patient denies any tobacco usage or history of. ROS: 07:50 Constitutional: Negative for fever, chills, and weight loss, Eyes: Negative for injury, scout pain, redness, and discharge, ENT: Negative for injury, pain, and discharge, Neck: Negative for injury, pain, and swelling, Cardiovascular: Negative for chest pain, palpitations, and edema, Respiratory: Negative for shortness of breath, cough, wheezing, and pleuritic chest pain, Abdomen/GI: Negative for abdominal pain, nausea, vomiting, diarrhea, and constipation, Back: Negative for injury and pain, : Negative for injury, bleeding, discharge, and swelling, Skin: Negative for injury, rash, and discoloration, Neuro: Negative for headache, weakness, numbness, tingling, and seizure, Psych: Negative for depression, anxiety, suicide ideation, homicidal ideation, and hallucinations, Allergy/Immunology: Negative for hives, rash, and allergies, Endocrine: Negative for neck swelling, polydipsia, polyuria, polyphagia, and marked weight changes, 07:50 MS/extremity: Positive for decreased range of motion, pain, tenderness, Exam: 07:50 Constitutional: This is a well developed, well nourished patient who is awake, alert, scout and in no acute distress. Head/Face: Normocephalic, atraumatic. Eyes: Pupils equal round and reactive to light, extra-ocular motions intact. Lids and lashes normal. Conjunctiva and sclera are non-icteric and not injected. Cornea within normal limits. Periorbital areas with no swelling, redness, or edema. ENT: Nares patent. No nasal discharge, no septal abnormalities noted. Tympanic membranes are normal and external auditory canals are clear. Oropharynx with no redness, swelling, or masses, exudates, or evidence of obstruction, uvula midline. Mucous membranes moist. Neck: Trachea midline, no thyromegaly or masses palpated, and no cervical lymphadenopathy. Supple, full range of motion without nuchal rigidity, or vertebral point tenderness. No Meningismus. Chest/axilla: Normal chest wall appearance and motion. Nontender with no deformity. No lesions are appreciated. Cardiovascular: Regular rate and rhythm with a normal S1 and S2. No gallops, murmurs, or rubs. Normal PMI, no JVD. No pulse deficits. Respiratory: Lungs have equal breath sounds bilaterally, clear to auscultation and percussion. No rales, rhonchi or wheezes noted. No increased work of breathing, no retractions or nasal flaring. Abdomen/GI: Soft, non-tender, with normal bowel sounds. No distension or tympany. No guarding or rebound. No evidence of tenderness throughout. Back: No spinal tenderness. No costovertebral tenderness. Full range of motion. Skin: Warm, dry with normal turgor. Normal color with no rashes, no lesions, and no evidence of cellulitis. Neuro: Awake and alert, GCS 15, oriented to person, place, time, and situation. Cranial nerves II-XII grossly intact. Motor strength 5/5 in all extremities. Sensory grossly intact. Cerebellar exam normal. Normal gait. Psych: Awake, alert, with orientation to person, place and time. Behavior, mood, and affect are within normal limits. 07:50 Musculoskeletal/extremity: ROM: intact in all extremities, limited active range of motion due to pain, limited passive range of motion due to pain, Pulses: are normal with no appreciated deficits, Sensation intact. Compartment Syndrome exam of affected extremity: is normal. no numbness, no tingling, no sensation deficit, no palor, no weak pulses, Joints: All joints are normal except limited range of motion, pain at rest, painful range of motion, tenderness, DVT Exam: no swelling, negative Homans' sign noted on exam, no appreciated bluish discoloration, no erythema, no increased warmth, pain, tenderness, Vital Signs: 07:41 BP 186 / 92; Pulse 112; Resp 18 S; Temp 98.2(O); Pulse Ox 100% on R/A; Weight 58.97 kg aa5 (R); Height 5 ft. 0 in. (R); 08:30 BP 139 / 92; Pulse 90; Resp 16; Pulse Ox 98% ; bp 07:41 Body Mass Index 25.39 (58.97 kg, 152.4 cm) aa5 MDM: 07:44 Patient medically screened. scout 08:04 Differential diagnosis: dislocation, closed fracture, contusion, abrasion, tendonitis. scout Data reviewed: vital signs, nurses notes, radiologic studies, CT scan. Consideration of Admission/Observation Escalation of care including admission/observation considered. I considered the following discharge prescriptions or medication management in the emergency department Medications were administered in the Emergency Department. See MAR. Independent interpretation of the following test(s) in the Emergency Department X-Ray: My interpretation is no fx. Test considered but Not performed: Labs: no labs. Historians other than the Patient: pt well informed. Care significantly affected by the following chronic conditions: asthma, vitiligo, von willebrand disease. 10/20 08:09 Order name: Wrist Right 3 View XRAY; Complete Time: 09:44 scout 10/20 07:47 Order name: Ice pack; Complete Time: 08:03 scout 10/20 07:47 Order name: Gian wrap-joint; Complete Time: 08:03 scout Administered Medications: 08:00 Drug: Acetaminophen PO 650 mg PO once Route: PO; bp Disposition Summary: 10/21/23 08:07 Discharge Ordered Notes: Location: Home scout Problem: new scout Symptoms: have improved scout Condition: Stable scout Diagnosis - Other specified sprain of right wrist scout Followup: scout - With: Private Physician - When: 2 - 3 days - Reason: Recheck today's complaints, Continuance of care, Re-evaluation by your physician Followup: scout - With: Camron Judge MD - When: 2 - 3 days - Reason: Recheck today's complaints, Re-evaluation by your physician Discharge Instructions: - Discharge Summary Sheet scout - Wrist Pain, Adult scout - Wrist Splint or Brace, Adult scout - Wrist Splint or Brace, Adult, [id number] scout - Wrist Pain, Adult, [id number] scout - Wrist Sprain, Adult scout Forms: - Medication Reconciliation Form scout - Antibiotic Education scout - Prescription Opioid Use scout - Patient Portal Instructions [facility] - Leadership Thank You Letter [facility] - Work release form em1 Prescriptions: - Tylenol 325 mg Oral tablet - take 2 tablets ORAL route every 6 hours as needed; 50 tablet; Refills: 0, scout Product Selection Permitted Signatures: Dispatcher [employer] Jaden Lara MD MD cha Calderon, Audri, RN RN aa5 Bunny Peña, RN RN bp Corrections: (The following items were deleted from the chart) 08:10 08:10 Wrist Right 3 View+RAD.[email or web address].[email or web address] ordered. DAMARIS BACONMS
--- NOTE | 2023-10-21 09:25 | RAD REPORT ---
EXAM DESCRIPTION: RAD - Wrist Right 3 View - 10/21/2023 9:00 am CLINICAL HISTORY: Right wrist pain FINDINGS: No bone or joint abnormality noted No fracture or dislocation is seen. If the patient continues to have symptoms to suggest an occult fr acture then a followup plain film series in 7 days would be recommended.
[2023-10-21 10:23] VITALS: BP 139/92; TEMP 98.2; O2SAT 98
== END 2023-10-21 10:12 | disposition home or self-care (01) ==
LOC: ER 07:38
DX: S63.591A Other specified sprain of right wrist, initial encounter (principal); Z88.8 Allergy status to other drugs, medicaments and biological substances
CPT/HCPCS: 99283

== ENCOUNTER 2024-02-19 07:45 | Emergency (ER) | payer OTHER ==
--- OUTSIDE RECORDS SUMMARY | 2024-02-19 07:48 | XMS REPORT | Clinical Summary ---
Author Name Unknown Organization [facility] Address [address] [place] [address] Care Team Providers Care Validation Manager Name Role Phone Silvio Alfonso MD Primary Care Provider [phone] Pratima Gomes MD Unavailable [phone] Maegan Trinidad MD Unavailable [phone] Allergies No known active allergies Medications Medication Sig Dispensed Refills Start Date End Date Status ascorbic acid, vitamin C, (vitamin C) 1000 mg tablet daily. Active cholecalciferol, vitamin D3, (Vitamin D3) 5,000 units tab tablet daily. Active garlic 1,000 mg cap Take 2,000 mg by mouth daily. Active omega-3 fatty acids/fish oil (fish oil-omega-3 fatty acids) 300-1,000 mg capsule Take 1 g by mouth daily. Active melatonin 3 mg tablet Take 3 mg by mouth nightly as needed. Active acetaminophen (Tylenol Extra Strength) 500 mg tabletIndications:Mal ignant neoplasm of endometrium Take 2 tablets (1,000 mg) by mouth every 6 (six) hours. 60 tablet 03/28/2021 Active senna-docusate (SENOKOT-S) 8.6 mg-50 mg tabletIndications:Mal ignant neoplasm of endometrium Take 1 tablet by mouth twice daily. 60 tablet 03/28/2021 Active ibuprofen (ADVIL,MOTRIN) 600 mg tabletIndications:Mal ignant neoplasm of endometrium Take 1 tablet (600 mg) by mouth every 6 (six) hours as needed for mild pain or moderate pain. 60 tablet 1 04/24/2021 Active cyclobenzaprine (FLEXERIL) 10 mg tablet Take 1 tablet (10 mg) by mouth nightly as needed. 01/26/2023 Active Active Problems Problem Noted Date Diagnosed Date [...] Signed by Silvio Alfonso MD on 04/29/2021 Immunizations Name Administration Dates Next Due Moderna SARS-CoV-2 Vaccination 07/12/2020,2019 Surgical History Surgery Date Site/Laterality Comments [place] LAPAROSCOPY TOT HYSTERECTOMY >250 G W/TUBE/OVAR 03/28/2021 N/A Procedure: ROBOTIC ASSISTED TOTAL HYSTERECTOMY; Surgeon: Silvio Alfonso MD; Location: MAIN OR; Service: [facility] - GYNECOLOGIC ONCOLOGY [place] SALPINGO-OOPHORECTOMY COMPL/PRTL UNI/BI SPX 03/28/2021 Bilateral Procedure: ROBOTIC ASSISTED SALPINGECTOMY; Surgeon: Silvio Alfonso MD; Location: MAIN OR; Service: [facility] - GYNECOLOGIC ONCOLOGY [place] INTRAOP SENTINEL LYMPH NODE ID W/DYE INJECTION 03/28/2021 Bilateral Procedure: INTRAOPERATIVE LYMPHATIC MAPPING; Surgeon: Silvio Alfonso MD; Location: MAIN OR; Service: [facility] - GYNECOLOGIC ONCOLOGY [place] LMTD LMPHADEC STAGING SPX PEL&PARA-AORTIC 03/28/2021 Abdomen/Bilateral Procedure: LIMITED LYMPHADENECTOMY FOR STAGING; PELVIC AND PARA-AORTIC LYMPH NODES; Surgeon: Silvio Alfonso MD; Location: MAIN OR; Service: [facility] - GYNECOLOGIC ONCOLOGY Medical History Medical History Date Comments Asthma 1990 Uterine leiomyoma 2017 Anemia 2019 Blood transfusion, without reported diagnosis ja josselineary 2019 Family History Medical History Relation Name Comments [...] 0 0 0 0 0 0 0 Plan of Treatment Upcoming Encounters Date Type Department Care Team (Late st Contact Info) Description 02/21/2024 10:30 AM CDT Follow-Up MD Dis[facility] in [place] - Gynecology [address] [place], [place] [id number] Carlos Enrique Echevarria MD [facility] [place], [place] [id number] [email or web address] Silvio Fraga MD [facility] [place], [place] [id number] [email or web address] Maintenance Due Date Last Done Comments Pneumococcal Vaccine: Pediat rics (0 to 5 Years) and At-Risk Patients (6 to 64 Years) (1 of 2 - PCV) 12/21/1981 COVID-19 Vaccine ( season) 2024, 06/10/2020 Influenza Vaccine (#1) 2024 Advance Directives * Full Code (Latest Code Status on File) Date Activated Date Inactivated Comments 04/04/2021 1:56 AM 04/04/2021 4:56 PM Care Teams Validation Manager Relationship Specialty Start Date End Date Silvoi Alfonso MD [address] [place] [id number] [email or web address] PCP - General Gynecological Oncology 02/11/21 Pratima Gomes MD [address] [place] [phone] [email or web address] PCP - External Referring Obstetrics/Gynecology 02/11/21 Maegan Trinidad MD [address] [place] [phone] [email or web address] Consulting Physician Gynecologic Medical Oncology 03/05/21
--- NOTE | 2024-02-19 08:04 | ER ---
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 Coronavirus screen: Client denies travel out of the [place] in the last 14 days. At this time, the client does not indicate any symptoms associated with coronavirus-19. Ebola Screen: Patient denies travel to an Ebola-affected area in the 21 days before illness onset. Initial Sepsis Screen: Does the patient meet any 2 criteria? No. Patient's initial sepsis screen is negative. Does the patient have a suspected source of infection? No. Patient's initial sepsis screen is negative. Risk Assessment: Do you want to hurt yourself or someone else? Patient reports no desire to harm self or others. Onset of symptoms was February 19, 2024. 07:55 Method Of Arrival: Ambulatory ll1 07:55 Acuity: [place] 4 ll1 08:14 Care prior to arrival: None. Mechanism of Injury: No Mechanism of Injury. Trauma event ll1 details: Injury occurred in the county of. Triage Assessment: 07:57 General: Appears uncomfortable, Behavior is calm, cooperative, appropriate for age. ll1 Pain: Complains of pain in back Pain currently is 8 out of 10 on a pain scale. Quality of pain is described as aching, Pain began 1 day ago. Musculoskeletal: Reports pain in back. MED SURG RN: 08:16 LMP N/A - Hysterectomy, Not ll1 Trauma Activation: Not Applicable Physician: ED Physician; Name: ; Notified At: ; Arrived At: Physician: General Surgeon; Name: ; Notified At: ; Arrived At: Physician: Radiology; Name: ; Notified At: ; Arrived At: Physician: Respiratory; Name: ; Notified At: ; Arrived At: Physician: Lab; Name: ; Notified At: ; Arrived At: Historical: - Allergies: 07:55 NKDA; ll1 - PMHx: 07:55 Asthma; uterine cancer; Vitiligo (Unknown); Von Willebrand disease (Unknown); ll1 - PSHx: 07:55 hysterectomy; ll1 - Immunization history:: Adult Immunizations up to date. - Infectious Disease History:: Denies. - Immunization history: Last tetanus immunization: - up to date. - Social history:: Smoking status: Patient denies any tobacco usage or history of. Screenin:12 [facility] ED Fall Risk Assessment (Adult) History of falling in the last 3 months, ll1 including since admission No falls in past 3 months (0 pts) Confusion or Disorientation No (0 pts) Intoxicated or Sedated No (0 pts) Impaired Gait No (0 pts) Mobility Assist Device Used No (0 pt) Altered Elimination No (0 pt) Score/Fall Risk Level 0 - 2 = Low Risk Maintained a safe environment, Hourly rounding (assess needs \T\ fall precautionary measures) done. Abuse screen: Denies threats or abuse. Nutritional screening: No deficits noted. Tuberculosis screening: No symptoms or risk factors identified. Primary Survey: 08:13 NO uncontrolled hemorrhage observed. A: The client is awake and alert. The airway is ll1 patent. Breathing/Chest: Spontaneous respiratory effort, equal unlabored respirations, breath sounds clear bilaterally, regular pattern, symmetrical chest rise and fall. Circulation: No external hemorrhage present. Regular and strong central pulse, skin warm/dry/normal color. Disability Client is alert. Exposure/Environment: There is no evidence of uncontrolled external bleeding. 08:14 Reassessment Breathing: Spontaneous respiratory effort, equal unlabored respirations, ll1 breath sounds clear bilaterally, regular pattern with symmetrical chest rise and fall. Assessment: 08:12 Reassessment: No changes from previously documented assessment. Patient and/or family ll1 updated on plan of care and expected duration. Pain level reassessed. Patient is alert, oriented x 3, equal unlabored respirations, skin warm/dry/pink. Vital Signs: 07:55 BP 170 / 101; Pulse 82; Resp 16; Pulse Ox 100% ; Weight 56.7 kg; Height 5 ft. 3 in. ; ll1 Pain 8/10; 07:55 Body Mass Index 22.14 (56.70 kg, 160.02 cm) ll1 07:55 Pain Scale: Adult ll1 Carloz Coma Score: 08:13 Eye Response: spontaneous(4). Motor Response: obeys commands(6). Verbal Response: ll1 oriented(5). Total: 15. Trauma Score (Adult): 08:13 Eye Response: spontaneous(1); Verbal Response: oriented(1); Motor Response: obeys ll1 commands(2); Systolic BP: > 89 mm Hg(4); Respiratory Rate: 10 to 29 per min(4); Carloz Score: 15; Trauma Score: 12 ED Course: 07:49 Patient arrived in ED. sj2 07:49 Jaden Disla MD is Attending Physician. scout 07:50 Arm band placed on Patient placed in an exam room, on a stretcher. ll1 07:57 Triage completed. ll1 08:12 David Mchugh, RN is Primary Nurse. ll1 08:14 No provider procedures requiring assistance completed. Patient did not have IV access ll1 during this emergency room visit. 08:15 Patient has correct armband on for positive identification. Provided Education on: take ll1 medications as prescribed. 08:16 Patient maintains SpO2 saturation greater than 95% on room air. ll1 08:16 Thermoregulation: n/a. ll1 Administered Medications: No medications were administered Medication: 08:17 VIS not applicable for this client. ll1 Intake: 08:13 PO: 0ml; Total: 0ml. ll1 Output: 08:13 Urine: 0ml; Total: 0ml. ll1 Outcome: 08:04 Discharge ordered by . scout 08:13 Patient left the ED. ll1 08:14 Discharged to home ambulatory, ll1 08:14 Condition: stable 08:14 Discharge instructions given to patient, Instructed on discharge instructions, follow up and referral plans. medication usage, Demonstrated understanding of instructions, follow-up care, medications, Prescriptions given X 1, 08:16 Patient's length of stay was not longer than 2 hours. ll1 Signatures: Jaden Disla MD MD cha Lewis, Lynsay, RN RN ll1 Panfilo Cox sj2 Corrections: (The following items were deleted from the chart) 07:58 07:55 Pulse 82bpm; Resp 16bpm; Pulse Ox 100%; 56.7 kg; Height 5 ft. 3 in.; BMI: 22.1; ll1 Pain 8/10, Adult; ll1
--- NOTE | 2024-02-19 08:04 | EDPHYS ---
Physician Documentation [facility] Name: Lissy Angel Age: 48 yrs Sex: Female : 1975 Arrival Date: 02/19/2024 Time: 07:45 Bed 20 Private MD: ED Physician Jaden Disla HPI: 02/18 07:57 This 48 yrs old Female presents to ER via Ambulatory with complaints of Fall scout Injury. 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 - Infectious Disease History:: Denies. - Immunization history: Last tetanus immunization: - up to date. - Social history:: Smoking status: Patient denies any tobacco usage or history of. ROS: 07:58 Constitutional: Negative for fever, chills, and weight loss, Eyes: Negative for injury, scout pain, redness, and discharge, ENT: Negative for injury, pain, and discharge, Neck: Negative for injury, pain, and swelling, Cardiovascular: Negative for chest pain, palpitations, and edema, Respiratory: Negative for shortness of breath, cough, wheezing, and pleuritic chest pain, Abdomen/GI: Negative for abdominal pain, nausea, vomiting, diarrhea, and constipation, : Negative for injury, bleeding, discharge, and swelling, MS/Extremity: Negative for injury and deformity, Skin: Negative for injury, rash, and discoloration, Neuro: Negative for headache, weakness, numbness, tingling, and seizure, Psych: Negative for depression, anxiety, suicide ideation, homicidal ideation, and hallucinations, Allergy/Immunology: Negative for hives, rash, and allergies, Endocrine: Negative for neck swelling, polydipsia, polyuria, polyphagia, and marked weight changes, Hematologic/Lymphatic: Negative for swollen nodes, abnormal bleeding, and unusual bruising, 07:58 Back: Positive for decreased range of motion, pain with movement, of the left subscapular area, right subscapular area, left mid back and right mid back, Exam: 07:58 Constitutional: This is a well developed, well nourished patient who is awake, alert, scout and in no acute distress. Head/Face: Normocephalic, atraumatic. Eyes: Pupils equal round and reactive to light, extra-ocular motions intact. Lids and lashes normal. Conjunctiva and sclera are non-icteric and not injected. Cornea within normal limits. Periorbital areas with no swelling, redness, or edema. ENT: Nares patent. No nasal discharge, no septal abnormalities noted. Tympanic membranes are normal and external auditory canals are clear. Oropharynx with no redness, swelling, or masses, exudates, or evidence of obstruction, uvula midline. Mucous membranes moist. Neck: Trachea midline, no thyromegaly or masses palpated, and no cervical lymphadenopathy. Supple, full range of motion without nuchal rigidity, or vertebral point tenderness. No Meningismus. Chest/axilla: Normal chest wall appearance and motion. Nontender with no deformity. No lesions are appreciated. Cardiovascular: Regular rate and rhythm with a normal S1 and S2. No gallops, murmurs, or rubs. Normal PMI, no JVD. No pulse deficits. Respiratory: Lungs have equal breath sounds bilaterally, clear to auscultation and percussion. No rales, rhonchi or wheezes noted. No increased work of breathing, no retractions or nasal flaring. Abdomen/GI: Soft, non-tender, with normal bowel sounds. No distension or tympany. No guarding or rebound. No evidence of tenderness throughout. Skin: Warm, dry with normal turgor. Normal color with no rashes, no lesions, and no evidence of cellulitis. MS/ Extremity: Pulses equal, no cyanosis. Neurovascular intact. Full, normal range of motion. Neuro: Awake and alert, GCS 15, oriented to person, place, time, and situation. Cranial nerves II-XII grossly intact. Motor strength 5/5 in all extremities. Sensory grossly intact. Cerebellar exam normal. Normal gait. Psych: Awake, alert, with orientation to person, place and time. Behavior, mood, and affect are within normal limits. 07:58 Back: pain, that is mild, ROM is painful, with flexion, with extension, normal spinal alignment noted, CVA tenderness, is absent, vertebral tenderness, is not appreciated, muscle spasm, is appreciated in the left subscapular area, right subscapular area, left low back, left mid back, right mid back and right low back, Vital Signs: 07:55 BP 170 / 101; Pulse 82; Resp 16; Pulse Ox 100% ; Weight 56.7 kg; Height 5 ft. 3 in. ; ll1 Pain 8/10; 07:55 Body Mass Index 22.14 (56.70 kg, 160.02 cm) ll1 07:55 Pain Scale: Adult ll1 [place] Coma Score: 08:13 Eye Response: spontaneous(4). Motor Response: obeys commands(6). Verbal Response: ll1 oriented(5). Total: 15. Trauma Score (Adult): 08:13 Eye Response: spontaneous(1); Verbal Response: oriented(1); Motor Response: obeys ll1 commands(2); Systolic BP: > 89 mm Hg(4); Respiratory Rate: 10 to 29 per min(4); Carloz Score: 15; Trauma Score: 12 MDM: 07:50 Patient medically screened. scout 07:56 Patient medically screened. scout 08:01 Differential diagnosis: Fatigue Osteoporosis ruptured disc, sprain. Data reviewed: [facility] vital signs, nurses notes. Consideration of Admission/Observation Escalation of care including admission/observation considered. I considered the following discharge prescriptions or medication management in the emergency department Medications were administered in the Emergency Department. See MAR. Test considered but Not performed: X-ray: no x ray. Care significantly affected by the following chronic conditions: Cancer. Administered Medications: No medications were administered Disposition Summary: 02/19/24 08:04 Discharge Ordered Notes: Location: Home scout Problem: new scout Symptoms: are unchanged scout Condition: Stable scout Diagnosis - Strain of muscle and tendon of front wall of thorax scout - Strain of muscle and tendon of back wall of thorax scout - Strain of muscle, fascia and tendon of lower back scout Followup: scout - With: Private Physician - When: 2 - 3 days - Reason: Recheck today's complaints, Continuance of care, Re-evaluation by your physician Discharge Instructions: - Acute Back Pain, Adult scout - Muscle Strain scout - Thoracic Strain scout - Back Injury Prevention, [id number] scout - Thoracic Strain, [id number] scout - Muscle Strain, [id number] scout - Back Injury Prevention scout - Discharge Summary Sheet ll1 Forms: - Medication Reconciliation Form scout - Antibiotic Education scout - Prescription Opioid Use scout - Patient Portal Instructions scout - Leadership Thank You Letter scout - Work release form ll1 Prescriptions: - Cyclobenzaprine 5 mg Oral Tablet - take 1 tablet ORAL route 3 times per day As needed; 15 tablet; Refills: 0, scout Product Selection Permitted Signatures: Jaden Disla MD MD cha Lewis, Lynsay, RN RN ll1
[2024-02-19 08:18] VITALS: BP 170/101; O2SAT 100
== END 2024-02-19 08:13 | disposition home or self-care (01) ==
LOC: ER 07:45
DX: S29.011A Strain of muscle and tendon of front wall of thorax, initial encounter (principal); S29.012A Strain of muscle and tendon of back wall of thorax, initial encounter; S39.012A Strain of muscle, fascia and tendon of lower back, initial encounter; W18.30XA Fall on same level, unspecified, initial encounter
CPT/HCPCS: 99284